=== PATIENT | male | born 1950 | race Caucasian/White ===

== ENCOUNTER → 2018-07-20 10:38 | Outpatient (CLI) | payer MEDICARE, OTHER, SELFPAY ==
[2018-07-20 11:06] LABS: International Normalized Ratio 2.5; Prothrombin Time (Protime)PT. 26.6 SECONDS (11.7-14.9)
== END ==
PROVIDERS: Family Provider Family Medicine; PCP Family Medicine; Referring Provider Family Medicine; Visit Provider Family Medicine
DX: I48.91 Unspecified atrial fibrillation (principal)
CPT/HCPCS: 85610

== ENCOUNTER 2019-07-09 15:19 | Inpatient (IN) | payer OTHER, MEDICARE, SELFPAY ==
[2019-07-09] VITALS (22 sets, daily range): BP systolic 88–157; BP diastolic 52–122; PULSE 89–132; RESP 16–29; TEMP 36.9–39; O2SAT 89–96; BMI 51.8; BMI 51.5; BMI 51.6
--- NOTE | 2019-07-09 15:39 | EKG12_ITS ---
Test Reason : Blood Pressure : / mmHG Vent. Rate : 117 BPM Atrial Rate : 105 BPM P-R Int : 000 ms QRS Dur : 096 ms QT Int : 272 ms P-R-T Axes : 000 -27 139 degrees QTc Int : 379 ms Atrial fibrillation with rapid ventricular response with premature ventricular or aberrantly conducte d complexes ST & T wave abnormality, consider lateral ischemia Abnormal ECG Confirmed by VANNESSA VERDIN, CODY ([id number]), copy editor ALLISON BURDICK ([id number]) on 07/19/2019 9:48:16 AM Referred By: PA Confirmed By:CODY HURD MD
--- NOTE | 2019-07-09 15:40 | RAD_ITS ---
STUDY: X-RAY CHEST REASON FOR EXAM: Male, 69 years old. SOB TECHNIQUE: Single AP portable view of the chest. COMPARISON: None. FINDINGS: The lungs are clear and expanded. There is no demonstrated pleural abnormality. There is mild cardiac enlargement. Normal mediastinum and tanna. Normal visualized pulmonary arteries. There is atherosclerotic tortuosity of the aortic arch and descending thoracic aorta. Normal visualized thoracic spine. Normal visualized ribs, clavicles, and shoulders. There is no demonstrated abnormality of the visualized soft tissue structures of the upper abdomen. RAD/Chest 1 View (Portable) IMPRESSION: Mild cardiomegaly. No acute chest disease. Electronically Signed: Esteban Yepez MD at 16:12 EST , Service support ,
[2019-07-09] MEDS: Acetaminophen 500 MG Tablet 1000 MG PO (15:58)
[2019-07-09] MEDS: Ondansetron 4 MG/2 ML Vial IV (15:58)
[2019-07-09 15:59] LABS: Absolute Lymphocyte Count 0.62 X10^3/uL (0.83-4.51); Basophil# 0.02 X10^3/uL; Basophil% 0.1 % (0-1); Hematocrit 45.8 % (40-54); Hemoglobin 15.3 g/dL (13.0-16.5); Lymphocyte # 0.62 X10^3/ul (4.0); Lymphocyte % 4.4 % (19-41); Mean Corp Hgb Conc 33.4 g/dL (32-36); Mean Corpuscular Hgb 31.9 pg (27.0-32.0); Mean Corpuscular Volume 95.4 fL (80-94); Mean Platelet Vol. 9.6 fl (6.2-12.0); Monocyte% 2.1 % (0-10); NRBC Flagged by Analyzer 0 % (0-5); Neutrophil # 13.03 X10^3/uL (2.7-7.7); Neutrophil % 92.6 % (47-70); POSITIVE MORPHOLOGY YES; Platelet Count 238 K/mm3 (150-450); RBC Distribution Width CV 14.6 % (11.6-14.6); RBC Distribution Width SD 50.9 fl (35.1-43.9); White Blood Count 14.1 K/mm3 (4.4-11.0)
[2019-07-09] MEDS: 0.9% Normal Saline 1,000 ML 999 ML IV ×2 (15:59→17:31)
[2019-07-09 16:00] LABS: Bacteria 0 SEEN /hpf (None Seen); Mucous, Urine 0 SEEN /hpf (<or=2+); Red Blood Cells-Urine 0 SEEN /hpf (0-5); Squamous Epithelial Cells - UA 0 SEEN /hpf (0-5)
[2019-07-09 16:03] LABS: Color, Urine Yellow (Yellow); Glucose, Dipstick Normal (Normal); Ketone-Dipstick Negative (Negative); Leukocyte Esterase-Dipstick 25 /ul (Negative); Nitrite-Dipstick Negative (Negative); Occult Blood-Urine Negative /ul (Negative); Protein-Dipstick Negative (Negative); Specific Gravity, Urine 1.015 (1.002-1.030); Urine Bilirubin Dipstick Negative (Negative); Urine Clarity Clear (Clear); Urine Urobilinogen Normal (Normal)
[2019-07-09 16:09] LABS: Differential Indicated SCAN CRITERIA MET; International Normalized Ratio 2.4; Prothrombin Time (Protime)PT. 25.7 SECONDS (11.7-14.9)
[2019-07-09 16:10] LABS: Partial Thromboplast Time 31.9 Seconds (24.1-36.2)
--- NOTE | 2019-07-09 16:19 | ED.DCSUM_ITS ---
History of Present Illness <Starla Pa - Last Filed: 07/09/19 17:13> Informant: Patient, Spouse/S.O., EMS Onset: Today Activity at onset: Exertion, Light Activity, Rest Timing: Continuous Quality: Dyspnea on exertion Current Severity: Severe Maximum Severity: Severe Worsened by: Coughing, Exertion Relieved by: Oxygen Associated Symptoms: Fever, Green sputum, Sweats. Negative for: Bloody Sputum, Chills, Clear sputum, Cough, Ear pain, Post-nasal drainage, Rhinorrhea, Sore throat, White sputum, Yellow sputum Chest Pain: None Narrative: 69-year-old male history of atrial fibrillation and DVT currently on Coumadin presents to the emergency department with fever malaise shortness of breath that have been getting worse over the last 12 hours. Cough is productive with green and yellow sputum. He is having a lot of myalgias as well. He has a mild frontal headache. No neck pain. No chest pain. He gets short of breath at rest and with exertion. Symptoms progressed at the course of today which prompted his to call EMS. He has chronic leg swelling but states it is not worse than normal. He has not had any vomiting or diarrhea. He has no abdominal pain or back pain. He denies orthopnea. He denies paroxysmal nocturnal dyspnea. He denies sick contacts. He denies any recent use of antibiotics. He denies any recent hospital admissions. PE Risk Factors: Prior DVT or PE. Negative for: Cancer, OCP + Smoking + > 35, Recent immobilization, Recent surgery, Recent travel Prior similar symptoms: No Recent Illness/Hospitalization: No <Dre Esparza - Last Filed: 07/09/19 17:23> Chief Complaint: Fever Past Medical History <Starla Pa - Last Filed: 07/09/19 17:13> Prior records reviewed: Yes Past Medical History: - - Atrial fibrillation, hypertension, gout, DVT Surgical History: no surgical history Lives: With Family Smoking Status: Current some day smoker Alcohol: Occasional Drugs: None <Dre Esparza - Last Filed: 07/09/19 17:23> - Allergies and Home Meds Allergies/Adverse Reactions: Allergies Penicillins Allergy (Verified 07/09/19 15:21) Nausea/Vom/Diarrhea adhesive Adverse Reaction (Verified 07/09/19 15:22) Rash Primary Care Physician: Jeff Gore III, MD [Primary Care Provider] - Review of Systems All systems negative except as indicated General: Reports: Chills, Fever, Malaise Eyes: Denies: Visual changes - bilaterally, Blurred Vision - bilaterally, Diplopia ENT: Denies: Rhinorrhea, Sore throat Cardiovascular: Denies: Chest pain, Palpitations, Heart racing Respiratory: Reports: Dyspnea, Cough, Sputum, Dyspnea on exertion. Denies: Orthopnea, Paroxysmal nocturnal dyspnea Gastrointestinal: Denies: Abdominal pain, Nausea, Vomiting, Diarrhea Genitourinary: Denies: Dysuria, Hematuria, Frequency Musculoskeletal: Reports: Myalgias, Swelling. Denies: Arthralgias, Neck pain, Back pain, Extremity Pain Skin: Denies: Rash, Abscess, Abrasions, Wounds Neurological: Denies: Headache, Weakness, Parasthesia Hematologic: Reports: Easy bruising. Denies: Easy bleeding <Dre Esparza - Last Filed: 07/09/19 17:23> Physical Exam Vital Signs/Narrative: Vital Signs Temp Pulse Resp BP Pulse Ox 07/09/19 16:03 102.2 F H 117 H 27 H 140/80 H 92 07/09/19 15:22 102.1 F H 131 H 25 H 157/122 H 89 <Starla Pa - Last Filed: 07/09/19 17:13> Vital Signs/Narrative: Vital Signs Temp Pulse Resp BP Pulse Ox 07/09/19 16:03 102.2 F H 117 H 27 H 140/80 H 92 07/09/19 15:22 102.1 F H 131 H 25 H 157/122 H 89 Inital Vital Signs reviewed: Yes General: Well nourished, Well developed, No Acute Distress Head: Normocephalic, Atraumatic Eyes: Perrl, EOMI ENT: Moist mucous membranes Neck: Supple, Nontender, No lymphadenopathy, No JVD Cardiovascular: Irregular, Tachycardia Respiratory: No distress, Chest nontender, Diminished Abdomen: Soft, Nontender, Nondistended, Normal bowel sounds, No masses Back: Nontender, Normal Inspection Extremities: Nontender, Edema. Negative for: Tenderness, Calf Tenderness Skin: Normal color, No rash, No Trauma Neurological: Alert, Oriented x3 Psychological: Normal affect, Normal Mood <Dre Esparza - Last Filed: 07/09/19 17:23> Diagnostic/Tx/Re-eval Impressions Chest X-Ray 07/09/19 15:40 IMPRESSION: Mild cardiomegaly. No acute chest disease. Electronically Signed: Esteban Yepez MD at 16:12 EST , Service support , 07/09/19 15:40 Chest 1 View (Portable) [RAD] Stat 07/09/19 16:00 Mucosa - Nose Influenza Types A,B Direct FA (ANDERS) - Final Laboratory Results 07/09/19 07/09/19 07/09/19 15:35 15:35 15:35 WBC 14.1 H RBC 4.80 Hgb 15.3 Hct 45.8 MCV 95.4 H MCH 31.9 MCHC 33.4 RDW Std Deviation 50.9 H RDW Coeff of [place] 14.6 Plt Count 238 MPV 9.6 Immature Gran % (Auto) 0.800 Neut % (Auto) 92.6 H Lymph % (Auto) 4.4 L [place] % (Auto) 2.1 Eos % (Auto) 0.0 Baso % (Auto) 0.1 Absolute Neuts (auto) 13.0 H Absolute Lymphs (auto) 0.62 L Nucleated RBC % 0 Platelet Estimate ADEQUATE RBC Morphology N CHROM Anisocytosis RARE Macrocytosis RARE PT 25.7 H INR 2.4 APTT 31.9 Sodium 136 Potassium 3.9 Chloride 101 Carbon Dioxide 28.0 Anion Gap 7 BUN 23 H Creatinine 1.19 Estim Creat Clear Calc 61.34 Est GFR (MDRD) Af Amer 78 Est GFR (MDRD) Non-Af 65 BUN/Creatinine Ratio 19.3 Glucose 142 H Lactic Acid Calcium 9.2 Total Bilirubin 0.70 AST 33 ALT 32 Alkaline Phosphatase 69 Total Protein 7.8 Albumin 3.5 Globulin 4.3 H Albumin/Globulin Ratio 0.8 L Urine Color Urine Clarity Urine pH Ur Specific [place] Urine Protein Urine Glucose (UA) Urine Ketones Urine Occult Blood Urine Nitrite Urine Bilirubin Urine Urobilinogen Ur Leukocyte Esterase Urine RBC Urine WBC Ur Squamous Epith Cells Urine Bacteria Urine Mucus 07/09/19 07/09/19 15:35 15:49 WBC RBC Hgb Hct MCV MCH MCHC RDW Std Deviation RDW Coeff of [place] Plt Count MPV Immature Gran % (Auto) Neut % (Auto) Lymph % (Auto) [place] % (Auto) Eos % (Auto) Baso % (Auto) Absolute Neuts (auto) Absolute Lymphs (auto) Nucleated RBC % Platelet Estimate RBC Morphology Anisocytosis Macrocytosis PT INR APTT Sodium Potassium Chloride Carbon Dioxide Anion Gap BUN Creatinine Estim Creat Clear Calc Est GFR (MDRD) Af Amer Est GFR (MDRD) Non-Af BUN/Creatinine Ratio Glucose Lactic Acid 3.2 H* Calcium Total Bilirubin AST ALT Alkaline Phosphatase Total Protein Albumin Globulin Albumin/Globulin Ratio Urine Color Yellow Urine Clarity Clear Urine pH 5.0 Ur Specific [place] 1.015 Urine Protein Negative Urine Glucose (UA) Normal Urine Ketones Negative Urine Occult Blood Negative Urine Nitrite Negative Urine Bilirubin Negative Urine Urobilinogen Normal Ur Leukocyte Esterase 25 H Urine RBC 0 SEEN Urine WBC 0-5 SEEN Ur Squamous Epith Cells 0 SEEN Urine Bacteria 0 SEEN Urine Mucus 0 SEEN Treatment - Dyspnea: Oxygen - Medical Decision Making Patient was seen with PA. I interviewed and examined him independently. Patient presents with body aches, fever, cough. Symptoms started today. Patient sitting upright in bed in no acute distress. Heart is tachycardic and irregular. Lung sounds are grossly clear. Abdomen is soft and nontender. Extremity examination reveals 2 skin avulsions to the lateral distal left leg. No sign of surrounding cellulitis. Cultures were obtained. At this time we have no source of infection for the patient's severe sepsis. Patient will be given vancomycin and cefepime per sepsis order set. Patient be admitted to ICU. <Starla Pa - Last Filed: 07/09/19 17:13> Chest X-Ray - ED: 1 View, Read by ED Physician, Read by Radiologist, No Acute Disease, Cardiomegaly - Rhythm Strip Rhythm Strip: A-fib Rate: 122 Ectopy: PVC(s) - EKG Initial EKG Interpretation: No Acute Injury Pattern, Atrial Fibrillation Prior: Unchanged Treatment - Dyspnea: Oxygen Repeat Evaluation: No change - Medical Decision Making On arrival the patient was febrile and tachycardic. He was in atrial fibrillation, which is chronic for him and he is anticoagulated for this. He was requiring oxygen. He was given the appropriate IV fluid bolus as sepsis work-up was pursued. He was given Zofran and Tylenol. Laboratory work-up was remarkable for white blood cell count of 14. His INR was 2.4. His lactate was 3.2. The rest of his laboratory work-up was unremarkable. His urinalysis was negative. His chest x-ray showed no acute findings mild cardiomegaly. At this time there is no source for the patient's infection. He did have 2 abrasions over his left leg but there does not appear to be acute infection. His influenza testing is negative. However due to his sepsis and requirement of oxygen he will require admission for further evaluation. Impressions Chest X-Ray 07/09/19 15:40 IMPRESSION: Mild cardiomegaly. No acute chest disease. Electronically Signed: Esteban Yepez MD at 16:12 EST , Service support , 07/09/19 15:40 Chest 1 View (Portable) [RAD] Stat 07/09/19 16:00 Mucosa - Nose Influenza Types A,B Direct FA (ANDERS) - Final Laboratory Results 07/09/19 07/09/19 07/09/19 15:35 15:35 15:35 WBC 14.1 H RBC 4.80 Hgb 15.3 Hct 45.8 MCV 95.4 H MCH 31.9 MCHC 33.4 RDW Std Deviation 50.9 H RDW Coeff of [place] 14.6 Plt Count 238 MPV 9.6 Immature Gran % (Auto) 0.800 Neut % (Auto) 92.6 H Lymph % (Auto) 4.4 L [place] % (Auto) 2.1 Eos % (Auto) 0.0 Baso % (Auto) 0.1 Absolute Neuts (auto) 13.0 H Absolute Lymphs (auto) 0.62 L Nucleated RBC % 0 Platelet Estimate ADEQUATE RBC Morphology N CHROM Anisocytosis RARE Macrocytosis RARE PT 25.7 H INR 2.4 APTT 31.9 Sodium 136 Potassium 3.9 Chloride 101 Carbon Dioxide 28.0 Anion Gap 7 BUN 23 H Creatinine 1.19 Estim Creat Clear Calc 61.34 Est GFR (MDRD) Af Amer 78 Est GFR (MDRD) Non-Af 65 BUN/Creatinine Ratio 19.3 Glucose 142 H Lactic Acid Calcium 9.2 Total Bilirubin 0.70 AST 33 ALT 32 Alkaline Phosphatase 69 Total Protein 7.8 Albumin 3.5 Globulin 4.3 H Albumin/Globulin Ratio 0.8 L Urine Color Urine Clarity Urine pH Ur Specific [place] Urine Protein Urine Glucose (UA) Urine Ketones Urine Occult Blood Urine Nitrite Urine Bilirubin Urine Urobilinogen Ur Leukocyte Esterase Urine RBC Urine WBC Ur Squamous Epith Cells Urine Bacteria Urine Mucus 07/09/19 07/09/19 15:35 15:49 WBC RBC Hgb Hct MCV MCH MCHC RDW Std Deviation RDW Coeff of [place] Plt Count MPV Immature Gran % (Auto) Neut % (Auto) Lymph % (Auto) [place] % (Auto) Eos % (Auto) Baso % (Auto) Absolute Neuts (auto) Absolute Lymphs (auto) Nucleated RBC % Platelet Estimate RBC Morphology Anisocytosis Macrocytosis PT INR APTT Sodium Potassium Chloride Carbon Dioxide Anion Gap BUN Creatinine Estim Creat Clear Calc Est GFR (MDRD) Af Amer Est GFR (MDRD) Non-Af BUN/Creatinine Ratio Glucose Lactic Acid 3.2 H* Calcium Total Bilirubin AST ALT Alkaline Phosphatase Total Protein Albumin Globulin Albumin/Globulin Ratio Urine Color Yellow Urine Clarity Clear Urine pH 5.0 Ur Specific [place] 1.015 Urine Protein Negative Urine Glucose (UA) Normal Urine Ketones Negative Urine Occult Blood Negative Urine Nitrite Negative Urine Bilirubin Negative Urine Urobilinogen Normal Ur Leukocyte Esterase 25 H Urine RBC 0 SEEN Urine WBC 0-5 SEEN Ur Squamous Epith Cells 0 SEEN Urine Bacteria 0 SEEN Urine Mucus 0 SEEN <Dre Esparza - Last Filed: 07/09/19 17:23> Disposition: Admit to ICU <Starla Pa - Last Filed: 07/09/19 17:13> ED Disposition <Starla Pa - Last Filed: 07/09/19 17:13> <Dre Esparza - Last Filed: 07/09/19 17:23> - Plan for ED Patient: Disposition: Acute Care Hospital [facility] Diagnosis: Severe sepsis Referrals: Jeff Gore III, MD [Primary Care Provider] -
[2019-07-09 16:28] LABS: ALB/GLOB Ratio 0.8 RATIO (0.9-2.4); AST(SGOT) 33 U/L (15-37); Alanine Aminotransfer ALT/SGPT 32 U/L (16-61); Albumin, Serum 3.5 g/dL (3.2-5.0); Alkaline Phosphatase 69 U/L (45-117); Anion Gap 7 (5-15); BUN 23 mg/dL (7-18); BUN/Creat Ratio 19.3 RATIO (10-20); Calcium,Total 9.2 mg/dL (8.5-10.1); Chloride 101 mmol/L (98-107); Creatinine, Serum 1.19 mg/dL (0.70-1.30); EST Glomerular Filtration Rate 65 mL/min (>60); Est Glom Filt Rate - Afr Amer 78 mL/min (>60); Estimated Creatinine Clearance 61.34 ml/min; Globulin 4.3 g/dL (2.2-4.2); Glucose 142 mg/dL (74-106); Potassium 3.9 mmol/L (3.5-5.1); Protein, Total 7.8 g/dL (6.4-8.2); Sodium Level 136 mmol/L (136-145)
[2019-07-09 16:29] LABS: Lactic Acid 3.2 mmol/L (0.4-1.9)
[2019-07-09 16:32] LABS: White Blood Cells 0-5 SEEN /hpf (0-5)
[2019-07-09 16:41] LABS: Anisocytosis RARE; Macrocytosis RARE; Platelet Estimate ADEQUATE (ADEQ); Red Cell Morphology N CHROM NORMAL (NORM C&C)
--- NOTE | 2019-07-09 17:19 | NURSING ---
ICU SEVERE SEPSIS SEMENTI
--- NOTE | 2019-07-09 17:22 | NURSING ---
ICU 2
--- NOTE | 2019-07-09 18:41 | HP.PCM_ITS ---
Problem List (1) Cellulitis Status: Acute Qualifiers: Site of cellulitis: extremity Site of cellulitis of extremity: lower extremity Laterality: left Qualified Code(s): L03.116 - Cellulitis of left lower limb (2) Venous stasis ulcers Status: Acute Qualifiers: Venous stasis ulcer site: calf Varicose vein presence: with varicose veins Laterality: left Non-pressure ulcer stage: with fat layer exposed Qualified Code(s): I83.022 - Varicose veins of left lower extremity with ulcer of calf; L97.222 - Non-pressure chronic ulcer of left calf with fat layer exposed (3) Super obesity Status: Chronic (4) Obstructive sleep apnea Status: Chronic Comment: he does not wear PAP (5) Hyperuricemia Status: Chronic (6) Gout Status: Chronic (7) Hypertension Status: Chronic (8) Hyperglycemia Status: Acute (9) Venous insufficiency Status: Chronic (10) Hypoxia Status: Acute (11) Atrial fibrillation Status: Chronic Qualifiers: Atrial fibrillation type: longstanding persistent Qualified Code(s): I48.11 - Longstanding persistent atrial fibrillation (12) Lactic acidosis Status: Acute (13) History of DVT (deep vein thrombosis) Status: Chronic (14) Chronic anticoagulation Status: Chronic Comment: On warfarin History of Present Illness Date of Admission: 07/09/19 Chief Complaint: Fever, pain in his left leg, headache and cough The patient is a 69 year old M with a past medical history of hypertension, hyperuricemia, gout, chronic venous insufficiency, history of venous stasis ulcers, chronic atrial fibrillation, TRACI (not compliant with PAP therapy), super obesity and remote history of DVT who presented to the emergency room at [facility] on 07/09/2019 complaining of fever, headache, mild cough and generally not feeling well starting just this morning. When he went to bed last night he felt fine. He denies any sick contacts. He has not recently been to [place]. He has no contacts that have been to [place]. He denies any recent contact with anybody having coronavirus. He did not get a flu shot this year. He is also complaining of nausea but it was completely relieved with 1 shot of Zofran. He denies diarrhea, abdominal pain, dysuria, flank pain, chest pain. He has shortness of breath with exertion. He denies any history of cardiovascular disease other than atrial fibrillation. Vital signs at presentation to the emergency department were temperature 102.1, pulse rate 131, blood pressure 157/122, respiratory rate 25 and he was 89% saturated on room air. He was 87% saturated on a 2 L nasal cannula at the time I examined him and I increased it to 3 L. Labs shows a white blood cell count of 14.1 with 92% neutrophils. Hemoglobin and platelets are within normal limits. INR is therapeutic at 2.4. The BMP shows a BUN of 23 and a creatinine of 1.19 and we have no baseline on this gentleman. Lactic acid was elevated at 3.2 LFTs were unremarkable. UA showed no signs of urinary tract infection. Chest x-ray s howed a poor inspiratory effort with crowded lung markings but there was no evidence of infiltrates, pleural effusions or pulmonary vascular congestion otherwise. He has 2 small venous stasis ulcers on the lateral aspect of the distal left lower extremity. There is purplish venous congestion in the area along with erythema and increased warmth to touch. He has pain with palpation and this is unusual for him. He is being admitted to the intensive care unit with a diagnosis of severe sepsis which more likely than not is secondary to cellulitis due to infected venous stasis ulcers of the left lower extremity. Past Medical History Past Medical History (Chronic Problems): Chronic Problems Super obesity (Chronic) Obstructive sleep apnea (Chronic) he does not wear PAP Hyperuricemia (Chronic) Gout (Chronic) Hypertension (Chronic) Venous insufficiency (Chronic) Atrial fibrillation (Chronic) History of DVT (deep vein thrombosis) (Chronic) Chronic anticoagulation (Chronic) On warfarin Allergies Penicillins Allergy (Verified 07/09/19 15:21) Nausea/Vom/Diarrhea adhesive Adverse Reaction (Verified 07/09/19 15:22) Rash Home Medications: Ambulatory Orders Medication Instructions Recorded Allopurinol 300 mg PO DAILY 07/09/19 Lisinopril 40 mg PO BID 07/09/19 Metoprolol Tartrate 25 mg PO BID 07/09/19 Potassium Chloride 20 meq PO DAILY 07/09/19 Warfarin [Coumadin ([facility])] 5 mg PO DAILY 07/09/19 hydroCHLOROthiazide 12.5 mg PO DAILY 07/09/19 [Hydrochlorothiazide] Surgical History: noncontributory Psychiatric History: No pertinent psych hx Lives: Spouse/ Significant Other, With Family Smoking Status: Current some day smoker Tobacco Use: Cigars, - - he did smoke cigarettes for about a year many years ago Alcohol: Occasional - 1-2 scotch a few days a week Drugs: None - *Family History Maternal History Items: No pertinent history Paternal History Items: No pertinent history Review of Systems Constitutional: Reports: Chills, Fever, Malaise. Denies: Weight Change Eyes: Denies: Blurred vision, Vision Change HEENT: Reports: Nasal Congestion - chronic. Denies: Difficulty Swallowing, Ear Pain, Head Aches, Sinus Congestion, Sinus Drainage, Sore Throat Cardiovascular: Reports: Edema - Chronic. Denies: Chest Pain, Light Headedness, Palpitations, Syncope Respiratory: Reports: Cough, Shortness of breath upon exertion - Shortness of breath is not new. Denies: Shortness of breath at rest, Sputum production, Wheezing Gastrointestinal: Reports: Nausea. Denies: Abdominal Pain, Constipation, Diarrhea, Vomiting Genitourinary: Denies: Dysuria Musculoskeletal: Denies: Joint Pain, Joint Tenderness Skin: Reports: Wounds - He has 2 small venous stasis ulcers on the left lower extremity from bumping his leg recently. Denies: Rash Neurological: Denies: Balance problems, Change in Speech, Slurred speech, Confusion, Focal weakness, Numbness, Tingling, Tremor, Seizures Psychiatric: Denies: Anxiety, Depression, Homicidal Ideations, Suicidal Ideations Endocrine: Denies: Change in Body Habitus Hematologic/ Lymphatic: Reports: Easy Bruising, Easy Bleeding, Hx of blood clot VTE Information - Inpt Only VTE Present on Admission: No Reason prophylaxis not ordered:: Treatment Not Indicated - He is therapeutic on warfarin Patient Problems: Active and Suspected Problems Severe sepsis (Acute) Cellulitis (Acute) Venous stasis ulcers (Acute) Hyperglycemia (Acute) Hypoxia (Acute) Lactic acidosis (Acute) - Physical Exam Vitals/I&O's: Vital Signs Temp Pulse Resp BP Pulse Ox 99.9 F H 92 23 H 111/72 93 07/09/19 18:13 07/09/19 18:13 07/09/19 18:13 07/09/19 18:13 07/09/19 18:13 Oxygen Flow Rate (L/min) 2 Oxygen Delivery Method Nasal Cannula Weight: 361 lb 5.402 oz Body Mass Index (BMI) 51.8 Intake and Output for Last 24 Hours 07/07/19 07/08/19 07/09/19 23:59 23:59 23:59 Intake Total 1100 / 1100 Balance 1100 / 1100 General: Alert, Oriented x3, Cooperative, Well developed, Well nourished HEENT: Atraumatic, PERRLA, EOMI, Normocephalic Oral: No Gingival or Mucosal Lesions/ Ulcerations, Dry Mucosa - mild Neck: Supple, No Nuchal Rigidity, Trachea Midline Lungs: Clear to auscultation, No rhonchi, No wheeze, No rales, Diminished - in the bases more likely than not due to his body habitus Cardiovascular: Normal S1, Normal S2, No murmurs, Irregular Rate, No Gallop, Tachycardic Abdomen: Bowel Sounds Present, Soft, Non Tender, Non-Distended, Obese Extremities: No cyanosis, Edema, - - stasis hyperpigmentation of the distal legs Skin: Ulcer/ Wound - he has 2 small venous stasis ulcers of the distal lateral left leg with erythema and increased warmth to touch....there is also purplish discoloration around the wounds due to venous stasis Musculoskeletal: No Muscle Wasting, Arthritic Changes Neurological: Cranial nerves II-XII grossly intact, Neuro grossly intact Psych/Mental Status: Normal Affect, Appropriate Microbiology Past 72 Hours 07/09/19 16:00 Mucosa - Nose Influenza Types A,B Direct FA (ANDERS) - Final Laboratory Results 07/09/19 15:35: WBC 14.1 H, RBC 4.80, Hgb 15.3, Hct 45.8, MCV 95.4 H, MCH 31.9, MCHC 33.4, RDW Std Deviation 50.9 H, RDW Coeff of Kalyan 14.6, Plt Count 238, MPV 9.6, Immature Gran % (Auto) 0.800, Neut % (Auto) 92.6 H, Lymph % (Auto) 4.4 L, [place]ette % (Auto) 2.1, Eos % (Auto) 0.0, Baso % (Auto) 0.1, Absolute Neuts (auto) 13.0 H, Absolute Lymphs (auto) 0.62 L, Nucleated RBC % 0, Platelet Estimate ADEQUATE, RBC Morphology N CHROM, Anisocytosis RARE, Macrocytosis RARE 07/09/19 15:35: PT 25.7 H, INR 2.4, APTT 31.9 07/09/19 15:35: Sodium 136, Potassium 3.9, Chloride 101, Carbon Dioxide 28.0, Anion Gap 7, BUN 23 H, Creatinine 1.19, Estim Creat Clear Calc 61.34, Est GFR (MDRD) Af Amer 78, Est GFR (MDRD) Non-Af 65, BUN/Creatinine Ratio 19.3, Glucose 142 H, Calcium 9.2, Total Bilirubin 0.70, AST 33, ALT 32, Alkaline Phosphatase 69, Total Protein 7.8, Albumin 3.5, Globulin 4.3 H, Albumin/Globulin Ratio 0.8 L 07/09/19 15:35: Lactic Acid 3.2 H* 07/09/19 15:49: Urine Color Yellow, Urine Clarity Clear, Urine pH 5.0, Ur Specific [place] 1.015, Urine Protein Negative, Urine Glucose (UA) Normal, Urine Ketones Negative, Urine Occult Blood Negative, Urine Nitrite Negative, Urine Bilirubin Negative, Urine Urobilinogen Normal, Ur Leukocyte Esterase 25 H, Urine RBC 0 SEEN, Urine WBC 0-5 SEEN, Ur Squamous Epith Cells 0 SEEN, Urine Bacteria 0 SEEN, Urine Mucus 0 SEEN Current Medications Acetaminophen (Tylenol) 650 mg PO Q6H TED Al Hydroxide/Mg Hydroxide (Mylanta Ii) 30 ml PO Q6H PRN PRN PRN Reason: Gastric Burning Albuterol Sulfate (Ventolin Aerosols) 2.5 mg INHALATION Q2H PRN PRN PRN Reason: SOB/Wheezing Allopurinol (Zyloprim) 300 mg PO DAILY TED Famotidine (Pepcid) 20 mg PO BID TED Guaifenesin (Robitussin) 10 ml PO Q4H PRN PRN PRN Reason: COUGH Vancomycin IV Pharmacy to Dose (1 ea/ Sodium Chloride) 500 mls @ 250 mls/hr IV X1 PRN; Protocol PRN Reason: Rx to Dose Vancomycin HCl 2,000 mg/ (Sodium Chloride) 540 mls @ 250 mls/hr IV X1 ONE Stop: 07/09/19 19:39 Last Admin: 07/09/19 18:12 Dose: 250 mls/hr Documented by: Sodium Chloride () 1,000 mls @ 75 mls/hr IV .[id number] TED Cefepime HCl 2 gm/ Sodium (Chloride) 100 mls @ 200 mls/hr IV Q8 TED Lisinopril (Zestril) 40 mg PO DAILY [facility] Magnesium Hydroxide (Milk Of Magnesia) 30 ml PO DAILY PRN PRN PRN Reason: Constipation Metoprolol Tartrate (Lopressor (Beta Muriel)) 25 mg PO BID [facility] Ondansetron HCl (Zofran) 4 mg IV Q8H PRN PRN PRN Reason: NAUSEA/VOMITING Oxycodone HCl (Oxyir) 5 mg PO Q4H PRN PRN PRN Reason: Pain Score 4-5/10 Potassium Chloride (K-Dur) 20 meq PO DAILY [facility] Prochlorperazine Edisylate (Compazine Iv) 5 mg IV Q4H PRN PRN PRN Reason: Breakthrough Nausea/Vomiting Senna/Docusate Sodium (Senokot-S, Sravani-Colace) 2 tablet PO BID PRN PRN Reason: Constipation Throat Lozenges (Cepacol Sore Throat Lozenge) 1 lozenge MUCOUS MEM Q2H PRN PRN PRN Reason: SORE THROAT Warfarin Sodium (Coumadin (Pbkc)) 5 mg PO DAILY [facility] Assessment/Plan All Active Problems Severe sepsis (Acute) Cellulitis (Acute) Venous stasis ulcers (Acute) Hyperglycemia (Acute) Hypoxia (Acute) Lactic acidosis (Acute) Impressions 1. Severe sepsis more likely than not secondary to infected venous stasis ul cers of the left lower extremity. Cefepime and vancomycin have been ordered. Will obtain a Gram stain and CUSTOMER SUPPORT ASSISTANT of the wound. Dressing orders have been written. Blood cultures were drawn in the emergency department. Initial lactic acid was 3.2 and he has hypoxia so he is being admitted to the ICU. 2. Chronic venous insufficiency with venous stasis ulcers of the Left LE. Compressions and elevation ordered. Will have the wound care nurse evaluate in the AM 3. hypoxia - suspect this may be his baseline? He has long standing TRACI and has never been compliant with PAP therapy. He is also morbidly obese and there may be an element of restrictive lung disease. Overnight trending pulse ox has been ordered. 4. Morbid obesity - weight reduction has been advised. 5. Hyperglycemia - no hx of DM II - will check a HGBA1C 6. Chronic atrial fibrillation/chronic anticoagulation with warfarin/hyperuricemia/gout/intermittent cigar smoker/hypertension: complicate care, prognosis, management - continue the home meds. I advised him to reconsider having a update sleep study since there are many new masks these days.......if he will not agree to PAP therapy he may be a candidate for home O2. Recheck lab in the a.m. Continue cefepime and vancomycin Repeat lactic acid has been ordered Check a hemoglobin A1c IV fluids ordered. Consult materials engineering technician Scheduled Tylenol every 6 hours to prevent shaking chills and to control the temp and help with HR Pt wishes to be a Full code - discussed with Ed and his
[2019-07-09 19:51] LABS: Reflex Lactate? Y
[2019-07-09 20:17] LABS: Magnesium 1.4 mg/dL (1.6-2.6); Uric Acid 5.6 mg/dL (3.5-7.2)
[2019-07-09 20:18] LABS: M R Staph aureus DNA By PCR Negative (Negative); Probe Check PASS; Specimen Processing Control PASS; Staph aureus DNA By PCR NEGATIVE (Negative)
[2019-07-09 20:35] LABS: Lactic Acid 2.8 mmol/L (0.4-1.9)
[2019-07-09] MEDS: 0.9% Normal Saline 1,000 ML 75 ML IV (20:49)
[2019-07-09] MEDS: 0.9% Normal Saline 1,000 ML 500 ML IV (20:53)
[2019-07-09] MEDS: Magnesium Sulfate 4gm/100mL 4 GM/100 ML IV.SOLN. IV (21:42)
[2019-07-09] MEDS: Famotidine 20 MG Tablet PO (21:46)
[2019-07-09 22:13] LABS: Hemoglobin A1c 6.6 % (4.2-6.3)
[2019-07-09] MEDS: Acetaminophen 325 MG Tablet 650 MG PO (23:50)
[2019-07-09] MEDS: 0.9% Saline Lock 10 ML Syringe IV (23:51)
[2019-07-10] VITALS (28 sets, daily range): BP systolic 86–140; BP diastolic 50–86; PULSE 75–110; RESP 15–28; TEMP 36.6–37.3; O2SAT 70–99
[2019-07-10 00:39] LABS: Lactic Acid 2.1 mmol/L (0.4-1.9)
[2019-07-10 04:07] LABS: Reflex Lactate? Y
[2019-07-10 05:13] LABS: Absolute Lymphocyte Count 0.71 X10^3/uL (0.83-4.51); Absolute Neutrophil Count 20.4 X10^3/uL (2.0-7.7); Basophil# 0.05 X10^3/uL; Basophil% 0.2 % (0-1); Eosinophil# 0.11 X10^3/uL; Eosinophils% 0.5 % (0-5); Hematocrit 40.2 % (40-54); Hemoglobin 13.6 g/dL (13.0-16.5); Lymphocyte # 0.71 X10^3/ul (4.0); Lymphocyte % 3.1 % (19-41); Mean Corp Hgb Conc 33.8 g/dL (32-36); Mean Corpuscular Hgb 32.5 pg (27.0-32.0); Mean Corpuscular Volume 96.2 fL (80-94); Mean Platelet Vol. 9.5 fl (6.2-12.0); Monocyte# 0.91 X10^3/uL; NRBC Flagged by Analyzer 0 % (0-5); Neutrophil % 89.5 % (47-70); POSITIVE DIFFERENTIAL YES; POSITIVE MORPHOLOGY YES; Platelet Count 201 K/mm3 (150-450); RBC Distribution Width CV 15.1 % (11.6-14.6); RBC Distribution Width SD 53.2 fl (35.1-43.9); Red Blood Count 4.18 M/mm3 (4.6-6.2); White Blood Count 22.8 K/mm3 (4.4-11.0)
[2019-07-10 05:23] LABS: International Normalized Ratio 2.2; Prothrombin Time (Protime)PT. 24.4 SECONDS (11.7-14.9)
[2019-07-10] MEDS: Acetaminophen 325 MG Tablet 650 MG PO ×3 (05:34→17:09)
[2019-07-10] MEDS: 0.9% Normal Saline 1,000 ML 150 ML IV (05:35)
[2019-07-10 05:47] LABS: Anion Gap 5 (5-15); BUN 18 mg/dL (7-18); BUN/Creat Ratio 20.1 RATIO (10-20); Chloride 102 mmol/L (98-107); Cholesterol 111 mg/dL (200); Creatinine, Serum 0.89 mg/dL (0.70-1.30); EST Glomerular Filtration Rate 90 mL/min (>60); Est Glom Filt Rate - Afr Amer 109 mL/min (>60); Estimated Creatinine Clearance 82.02 ml/min; Glucose 112 mg/dL (74-106); High Density Lipoprotein 54 mg/dL; Magnesium 2.4 mg/dL (1.6-2.6); Phosphorus 3.1 mg/dL (2.5-4.9); Potassium 4.1 mmol/L (3.5-5.1); Sodium Level 136 mmol/L (136-145); Triglycerides 83 mg/dL; Very Low Density Lipoprotein 17 mg/dL (5-40)
[2019-07-10 07:00] LABS: Differential Indicated SCAN CRITERIA MET
[2019-07-10] MEDS: Magnesium Oxide 400 MG Tablet PO (08:03)
[2019-07-10] MEDS: Metoprolol Tartrate 25 MG Tablet PO ×2 (08:04→21:24)
[2019-07-10] MEDS: Allopurinol 300 MG Tablet PO (08:04)
[2019-07-10] MEDS: Famotidine 20 MG Tablet PO ×2 (08:04→21:24)
[2019-07-10] MEDS: Glucerna Shake 120 ML LIQUID PO (08:08)
--- NOTE | 2019-07-10 09:25 | NURSING ---
wound photo: left lower leg
--- NOTE | 2019-07-10 09:48 | PCM.CON.CC ---
Problem List (1) Severe sepsis Status: Acute (2) Venous stasis ulcers Status: Acute Qualifiers: Venous stasis ulcer site: calf Varicose vein presence: with varicose veins Laterality: left Non-pressure ulcer stage: with fat layer exposed Qualified Code(s): I83.022 - Varicose veins of left lower extremity with ulcer of calf; L97.222 - Non-pressure chronic ulcer of left calf with fat layer exposed (3) Super obesity Status: Chronic (4) Obstructive sleep apnea Status: Chronic Comment: he does not wear PAP (5) Hyperuricemia Status: Chronic (6) Gout Status: Chronic (7) Hypertension Status: Chronic (8) Hypoxia Status: Acute (9) Atrial fibrillation Status: Chronic Qualifiers: Atrial fibrillation type: longstanding persistent Qualified Code(s): I48.11 - Longstanding persistent atrial fibrillation (10) History of DVT (deep vein thrombosis) Status: Chronic (11) Chronic anticoagulation Status: Chronic Comment: On warfarin Reason for Consult Date of Consultation: 07/10/19 Reason for Consultation: Severe sepsis History of Present Illness: The patient is a 69 year old M, with past medical history listed below, who presented [facility] on 07/09/2019 secondary to fever, malaise and shortness of breath over the last 24 hours. Patient reportedly had a cough productive of green to yellow sputum over the last 24 hours. Patient also developed a mild frontal headache, but denied any neck or chest pain. Patient states that he had noted some increased shortness of breath and asked his to call EMS. Patient does have chronic lower extremity swelling that does not subjectively appear to be any worse compared to previous. Patient not reported any recent GI issues such as vomiting, diarrhea or nausea. Patient did not reported any abdominal or back pain. Patient denies any recent antibiotics or hospital admissions. Patient has had an issue with a lower extremity ulcer in the past, but this has since healed. In the ER, patient was noted to be febrile, tachycardic and leukocytosis. Patient's lactate was also elevated at 3.2. Patient is in chronic A. fib, but did have some tachycardia and was requiring supplemental oxygen to maintain saturations. Chest x-ray was unremarkable. Patient does have some abrasions over his left leg and was admitted to the intensive care unit with empiric healthcare associated antibiotics. Overnight, patient did have significant desaturations into the 40s and 50s that was attributed to sleep apnea. This was not responsive to 3 L nasal cannula. Patient reports that he feels subjectively improved compared to previous. Patient's pain is gone and he feels his shortness of breath is back to its normal. Patient does report some lower extremity edema at baseline, but is unclear if this is significantly different compared to previous. Patient has had atrial fibrillation in the past that is typically followed by his primary care physician. Patient has seen Dr. Galloway during previous hospitalizations per his report. Patient does have a history of obstructive sleep apnea in 2007 and had a CPAP prescribed. Patient states he used it for 1 or 2 days and then gave it up. Review of systems otherwise negative from a constitutional, HEENT, respiratory, cardiovascular, GI, genitourinary, musculoskeletal, skin, neurologic, psychiatric and hematologic system unless stated above. Past Medical History Past Medical History (Chronic Problems): Chronic Problems Super obesity (Chronic) Obstructive sleep apnea (Chronic) he does not wear PAP Hyperuricemia (Chronic) Gout (Chronic) Hypertension (Chronic) Venous insufficiency (Chronic) Atrial fibrillation (Chronic) History of DVT (deep vein thrombosis) (Chronic) Chronic anticoagulation (Chronic) On warfarin Allergies Penicillins Allergy (Verified 07/09/19 15:21) Nausea/Vom/Diarrhea adhesive Adverse Reaction (Verified 07/09/19 15:22) Rash Home Medications: Ambulatory Orders Medication Instructions Recorded Allopurinol 300 mg PO DAILY 07/09/19 Lisinopril 40 mg PO DAILY 07/09/19 Metoprolol Tartrate 25 mg PO BID 07/09/19 Potassium Chloride 20 meq PO DAILY 07/09/19 Warfarin [Coumadin ([facility])] 5 mg PO DAILY 07/09/19 hydroCHLOROthiazide 12.5 mg PO DAILY 07/09/19 [Hydrochlorothiazide] Surgical History: noncontributory Psychiatric History: No pertinent psych hx Lives: Spouse/ Significant Other, With Family Smoking Status: Current some day smoker Tobacco Use: Cigars, - - he did smoke cigarettes for about a year many years ago Alcohol: Occasional - 1-2 scotch a few days a week Drugs: None - *Family History Maternal History Items: No pertinent history Paternal History Items: No pertinent history Review of Systems Comment: See HPI Patient Problems: Active and Suspected Problems Severe sepsis (Acute) Cellulitis (Acute) Venous stasis ulcers (Acute) Hyperglycemia (Acute) Hypoxia (Acute) Lactic acidosis (Acute) Objective: Chest x-ray was personally reviewed showing no acute infiltrate, but cardiomegaly. Patient also had a sleep study from 2007 that was reviewed showing a need for CPAP 12 cm of water. Unfortunately, patient's BMI at that time was 38. Patient did have significant periodic limb movements noted. Patient does not have any echocardiogram in our system, but reportedly has had one at [facility] with his primary care physician. - Physical Exam Vitals/I&O's: Vital Signs Temp Pulse Resp BP Pulse Ox 37.2 C 91 85 H 104/65 98 07/10/19 08:00 07/10/19 09:00 07/10/19 09:00 07/10/19 09:00 07/10/19 09:00 Oxygen Flow Rate (L/min) 3 Oxygen Delivery Method Nasal Cannula Weight: 163.1 kg Body Mass Index (BMI) 51.5 Intake and Output for Last 24 Hours 07/08/19 07/09/19 07/10/19 23:59 23:59 23:59 Intake Total 3983.75 / 4067.50 1121.25 / 1121.25 Output Total 275 / 275 400 / 400 Balance 3708.75 / 3792.50 721.25 / 721.25 General: Alert, Oriented x3, Cooperative, No apparent distress, Well developed, Well nourished, - - Morbidly obese. No conversational dyspnea. HEENT: Atraumatic, PERRLA, EOMI, Normocephalic Oral: Moist Mucosa, No Gingival or Mucosal Lesions/ Ulcerations, - - Crowded posterior pharynx Neck: Supple, No JVD, No Nodes, Trachea Midline Lungs: No rhonchi, No wheeze, No rales, Diminished, - - Symmetric expansion. No dullness to percussion. Cardiovascular: Normal S1, Normal S2, No murmurs, Irregular Rate, No rub noted, No Gallop Abdomen: Bowel Sounds Present, Soft, Non Tender, Non-Distended, Obese Extremities: No clubbing, No cyanosis, Edema - Bilateral lower extremities Skin: Ulcer/ Wound - Left lower extremity Musculoskeletal: No Tenderness to Palpation of Joints or Extremities Lymphatic: No Cervical, Supraclavicular, or Inguinal Adenopathy Neurological: Cranial nerves II-XII grossly intact, Neuro grossly intact - Slight decrease in sensation bilateral lower extremities, Motor Exam 5/5 strength throughout Psych/Mental Status: Alert and oriented to time, place, person, mood and affect Microbiology Past 72 Hours 07/09/19 16:00 Mucosa - Nose Influenza Types A,B Direct FA (ANDERS) - Final Laboratory Results 07/09/19 15:35: WBC 14.1 H, RBC 4.80, Hgb 15.3, Hct 45.8, MCV 95.4 H, MCH 31.9, MCHC 33.4, RDW Std Deviation 50.9 H, RDW Coeff of Kalyan 14.6, Plt Count 238, MPV 9.6, Immature Gran % (Auto) 0.800, Neut % (Auto) 92.6 H, Lymph % (Auto) 4.4 L, [place] % (Auto) 2.1, Eos % (Auto) 0.0, Baso % (Auto) 0.1, Absolute Neuts (auto) 13.0 H, Absolute Lymphs (auto) 0.62 L, Nucleated RBC % 0, Platelet Estimate ADEQUATE, RBC Morphology N CHROM, Anisocytosis RARE, Macrocytosis RARE 07/09/19 15:35: PT 25.7 H, INR 2.4, APTT 31.9 07/09/19 15:35: Sodium 136, Potassium 3.9, Chloride 101, Carbon Dioxide 28.0, Anion Gap 7, BUN 23 H, Creatinine 1.19, Estim Creat Clear Calc 61.34, Est GFR (MDRD) Af Amer 78, Est GFR (MDRD) Non-Af 65, BUN/Creatinine Ratio 19.3, Glucose 142 H, Calcium 9.2, Total Bilirubin 0.70, AST 33, ALT 32, Alkaline Phosphatase 69, Total Protein 7.8, Albumin 3.5, Globulin 4.3 H, Albumin/Globulin Ratio 0.8 L 07/09/19 15:35: Lactic Acid 3.2 H* 07/09/19 15:49: Urine Color Yellow, Urine Clarity Clear, Urine pH 5.0, Ur Specific [place] 1.015, Urine Protein Negative, Urine Glucose (UA) Normal, Urine Ketones Negative, Urine Occult Blood Negative, Urine Nitrite Negative, Urine Bilirubin Negative, Urine Urobilinogen Normal, Ur Leukocyte Esterase 25 H, Urine RBC 0 SEEN, Urine WBC 0-5 SEEN, Ur Squamous Epith Cells 0 SEEN, Urine Bacteria 0 SEEN, Urine Mucus 0 SEEN 07/09/19 15:55: Hemoglobin A1c 6.6 H 07/09/19 15:55: Uric Acid 5.6, Magnesium 1.4 L 07/09/19 18:50: S.aureus Protein A PCR NEGATIVE, MRSA (PCR) Negative 07/09/19 18:53: PT Cancelled, INR Cancelled 07/09/19 20:00: Lactic Acid 2.8 H* 07/09/19 23:45: Lactic Acid 2.1 H* 07/10/19 04:45: WBC 22.8 H, RBC 4.18 L, Hgb 13.6, Hct 40.2, MCV 96.2 H, MCH 32.5 H, MCHC 33.8, RDW Std Deviation 53.2 H, RDW Coeff of Kalyan 15.1 H, Plt Count 201, MPV 9.5, Immature Gran % (Auto) 2.700 H, Neut % (Auto) 89.5 H, Lymph % (Auto) 3.1 L, [place] % (Auto) 4.0, Eos % (Auto) 0.5, Baso % (Auto) 0.2, Absolute Neuts (auto) 20.4 H, Absolute Lymphs (auto) 0.71 L, Nucleated RBC % 0, Differential Comment 07/10/19 04:45: PT 24.4 H, INR 2.2 07/10/19 04:45: Sodium 136, Potassium 4.1, Chloride 102, Carbon Dioxide 29.0, Anion Gap 5, BUN 18, Creatinine 0.89, Estim Creat Clear Calc 82.02, Est GFR (MDRD) Af Amer 109, Est GFR (MDRD) Non-Af 90, BUN/Creatinine Ratio 20.1 H, Glucose 112 H, Calcium 8.0 L, Phosphorus 3.1, Magnesium 2.4, Triglycerides 83, Cholesterol 111, LDL Cholesterol 40, VLDL Cholesterol 17, HDL Cholesterol 54 Current Medications Acetaminophen (Tylenol) 650 mg PO Q6 TED Last Admin: 07/10/19 05:34 Dose: 650 mg Documented by: Al Hydroxide/Mg Hydroxide (Mylanta Ii) 30 ml PO Q6H PRN PRN PRN Reason: Gastric Burning Albuterol Sulfate (Ventolin Aerosols) 2.5 mg INHALATION Q2H PRN PRN PRN Reason: SOB/Wheezing Allopurinol (Zyloprim) 300 mg PO DAILY@0800 [facility] Last Admin: 07/10/19 08:04 Dose: 300 mg Documented by: Famotidine (Pepcid) 20 mg PO BID [facility] Last Admin: 07/10/19 08:04 Dose: 20 mg Documented by: Guaifenesin (Robitussin) 10 ml PO Q4H PRN PRN PRN Reason: COUGH Sodium Chloride () 1,000 mls @ 150 mls/hr IV .Q6H40M [facility] Last Admin: 07/10/19 05:35 Dose: 150 mls/hr Documented by: Cefepime HCl 2 gm/ Sodium (Chloride) 100 mls @ 200 mls/hr IV Q8 [facility] Last Infusion: 07/10/19 06:05 Dose: Infused Documented by: Sodium Chloride () 250 mls @ 15 mls/hr IV .[id number] PRN PRN Reason: Saline Flush Sodium Chloride () 250 mls @ 15 mls/hr IV .[id number] PRN PRN Reason: Additional IVPB Infusion Influenza Virus Vaccine Quadrival (Flucelvax /Fluzone ) 0.5 ml IM .ONCE ONE Stop: 07/11/19 10:01 Magnesium Hydroxide (Milk Of Magnesia) 30 ml PO DAILY PRN PRN PRN Reason: Constipation [facility] 400[facility] Admin: 07/10/19 08:03 Dose: 400 mg Documented by: Metoprolol Tartrate (Lopressor (Beta Muriel)) 2.5 mg IV Q6H PRN PRN PRN Reason: sustained HR >115 Metoprolol Tartrate (Lopressor (Beta Muriel)) 25 mg PO BID [facility] Last Admin: 07/10/19 08:04 Dose: 25 mg Documented by: Ondansetron HCl (Zofran) 4 mg IV Q8H PRN PRN PRN Reason: NAUSEA/VOMITING Oxycodone HCl (Oxyir) 5 mg PO Q4H PRN PRN PRN Reason: Pain Score 4-5/10 Potassium Chloride (K-Dur) 20 meq PO DAILY [facility] Last Admin: 07/10/19 08:04 Dose: 20 meq Documented by: Prochlorperazine Edisylate (Compazine Iv) 5 mg IV Q4H PRN PRN PRN Reason: Breakthrough Nausea/Vomiting Senna/Docusate Sodium (Senokot-S, Sravani-Colace) 2 tablet PO BID PRN PRN PRN Reason: Constipation Sodium Chloride () 10 - 40 ml IV UD PRN PRN Reason: SALINE FLUSH Last Admin: 07/09/19 23:51 Dose: 20 ml Documented by: Throat Lozenges (Cepacol Sore Throat Lozenge) 1 lozenge MUCOUS MEM Q2H PRN PRN PRN Reason: SORE THROAT Warfarin Sodium (Coumadin (Pbkc)) 5 mg PO SuTuThSa@1700 [facility] Last Admin: 07/09/19 21:41 Dose: 5 mg Documented by: Warfarin Sodium (Coumadin (Pbkc)) 7.5 mg PO MoWeFr@1700 [facility] Clinical Impression(s) from Imaging Studies Chest X-Ray 07/09/19 15:40 IMPRESSION: Mild cardiomegaly. No acute chest disease. Electronically Signed: Esteban Yepez MD at 16:12 EST , Service support , Assessment/Plan Active and Suspected Problems Severe sepsis (Acute) Cellulitis (Acute) Venous stasis ulcers (Acute) Hyperglycemia (Acute) Hypoxia (Acute) Lactic acidosis (Acute) RECOMMENDATIONS: 1. Okay to discontinue vancomycin, continue cefepime 2. Initiate AVAPS for sleep apnea 3. Wound nurse to evaluate lower extremities 4. Reinitiate beta-umriel. Continue to hold SUNG inhibitor 5. Okay to leave the intensive care unit from my perspective IMPRESSIONS: 1. Severe sepsis secondary to probable infected venous stasis ulcer Patient's MRSA swab was negative, so vancomycin can be discontinued. Agree with continuation of cefepime for now. Await results of cultures. Initial tachypnea may have been secondary to compensation for lactic acidosis in the setting of possible obstructive lung disease given smoking history. Evaluation of COPD would have to be completed as an outpatient. 2. Chronic venous insufficiency with left lower extremity venous stasis ulcer Wound looks relatively benign clinically. Cultures are currently pending. Compression and elevation has been ordered. Wound nurse to evaluate. Do not believe plastics needs to be involved at this time. 3. Hypoxia/untreated sleep apnea/possible obstructive lung disease Patient with significant hypoxia overnight, but this was related to apneic events clinically. Patient's previous CPAP of 12 cm of water is likely not sufficient given an increase in BMI of over 10 kg/m?. Patient will be placed on AVAPS while in the hospital. Patient will need a sleep study as an outpatient as BiPAP will likely be necessary. Did stress to the patient the role of weight loss and the overall disease plan of care. Patient would also benefit from pulmonary function testing as an outpatient. Could consider as needed bronchodilators, but steroids are likely not indicated. 4. Hyperglycemia/morbid obesity/chronic A. fib/chronic anticoagulation/gout/hypertension Complicates care, management, recovery and prognosis. Hemoglobin A1c is currently pending. Will reinitiate patient's beta-muriel to avoid A. fib with RVR. Continue to hold SUNG inhibitor given marginal blood pressures. Possible addition of sliding scale insulin if glucose starts to become elevated. Patient would benefit from diabetic teaching for probable prediabetes. Code Visit Inpatient E&M: 12359 Init Hosp L3
--- NOTE | 2019-07-10 10:45 | CASEMGMT ---
Admission Nursing notes indicate pt was asked if he had a living will or health care POA and pt declined. Information on Advance directives was offered and pt declined further information as well. MIRZA Lovett
--- NOTE | 2019-07-10 10:57 | CASEMGMT ---
RN CM Assessment Introduced role of RN CM to patient.? Patient is alert, oriented and able?to participate in RN CM Assessment. ?Care providers, pharmacy, and demographics verified. Presentation: Fever, ROSAS, Mild cough, generally not feeling well Admit Dx: Severe Sepsis, Cellulitis, Hypoxia, Cough Re-Admit: No Barriers/Issues: None PCP: Jeff Gore III Specialists: None Preferred Pharmacy: [facility] Insurance: [facility], [facility] Rx Benefit:?Yes ?LNOK: Laura Pal LW/HPOA: States has LW, does not have HPOA and declines offered paperwork or completion on this admission. States that he has an electrical & instrumentation supervisor that he is going to complete it with. Living Arrangements: Lives with in a 2SH, Bedroom on . 3 [address] to enter home.? ADL?s: Independent with ambulation and ADLs Transportation: Both patient and drive DME: CPAP- cannot recall which agency it was through. States that he got it in [place]. Denies any other DME. HHC: None SNF: None Goal: Home and does not think will have any needs. If home O2 required at DC- In network DME list given and preference is [employer]. If additional PT is recommended, would prefer Outpatient PT with [facility]. Denies any concerns, issues, needs or questions with DC planning at this time. Aware CM remains available for any emerging needs. DC PLAN: Home with possible Home O2 and Outpatient PT. KEVIN Mancera
--- NOTE | 2019-07-10 14:39 | PCM.HP.ID ---
Problem List (1) Severe sepsis Status: Acute Reason for Consult: sepsis Consulted by: Dr. Montgomery History of Present Illness: The patient is a 69 year old M with h/o obesity, venous stasis, presented with one day h/o shakes, chills, fever, nausea, mild dyspnea. Has some chronic dyspnea on exertion. Hit his L hermosillo about 5 days ago, had not noticed any increased pain/swelling/redness/drainage. No sick contacts. No sputum. Sx suddenly started 07/08, came to ED, started on vanc/cefepime, feeling much better today. Presentation similar to past episodes of cellulitis. Full ROS Performed and neg except as noted above. - Medical History Past Medical History (Chronic Problems): Chronic Problems Super obesity (Chronic) Obstructive sleep apnea (Chronic) he does not wear PAP Hyperuricemia (Chronic) Gout (Chronic) Hypertension (Chronic) Venous insufficiency (Chronic) Atrial fibrillation (Chronic) History of DVT (deep vein thrombosis) (Chronic) Chronic anticoagulation (Chronic) On warfarin Allergies/Adverse Reactions: Allergies Penicillins Allergy (Verified 07/09/19 15:21) Nausea/Vom/Diarrhea adhesive Adverse Reaction (Verified 07/09/19 15:22) Rash Home Medications: Ambulatory Orders Medication Instructions Recorded Allopurinol 300 mg PO DAILY 07/09/19 Lisinopril 40 mg PO DAILY 07/09/19 Metoprolol Tartrate 25 mg PO BID 07/09/19 Potassium Chloride 20 meq PO DAILY 07/09/19 Warfarin [Coumadin ([facility])] 5 mg PO DAILY 07/09/19 hydroCHLOROthiazide 12.5 mg PO DAILY 07/09/19 [Hydrochlorothiazide] - Social History SMOKING STATUS:: Current every day smoker Vital Signs Temp Pulse Resp BP Pulse Ox 98.1 F 87 17 108/83 H 98 07/10/19 14:00 07/10/19 14:00 07/10/19 14:00 07/10/19 14:00 07/10/19 14:00 Oxygen Flow Rate (L/min) 3 Oxygen Delivery Method Nasal Cannula Weight: 163.1 kg Body Mass Index (BMI) 51.5 Microbiology Past 72 Hours 07/09/19 18:50 Gram Stain - Final Wound - Leg, Left Wound Culture - Preliminary Staphylococcus species 07/09/19 15:49 Urine Culture - Preliminary Urine, Clean Catch GPC Poss Enterococcus sp 07/09/19 16:00 Influenza Types A,B Direct FA (ANDERS) - Final Mucosa - Nose Laboratory Tests Past 24 Hrs 07/09/19 07/09/19 07/09/19 15:35 15:35 15:35 WBC 14.1 H RBC 4.80 Hgb 15.3 Hct 45.8 MCV 95.4 H MCH 31.9 MCHC 33.4 RDW Std Deviation 50.9 H RDW Coeff of [place]aly[place] 14.6 Plt Count 238 MPV 9.6 Immature Gran % (Auto) 0.800 Neut % (Auto) 92.6 H Lymph % (Auto) 4.4 L [place] % (Auto) 2.1 Eos % (Auto) 0.0 Baso % (Auto) 0.1 Absolute Neuts (auto) 13.0 H Absolute Lymphs (auto) 0.62 L Nucleated RBC % 0 Differential Comment Platelet Estimate ADEQUATE RBC Morphology N CHROM Anisocytosis RARE Macrocytosis RARE PT 25.7 H INR 2.4 APTT 31.9 Sodium 136 Potassium 3.9 Chloride 101 Carbon Dioxide 28.0 Anion Gap 7 BUN 23 H Creatinine 1.19 Estim Creat Clear Calc 61.34 Est GFR (MDRD) Af Amer 78 Est GFR (MDRD) Non-Af 65 BUN/Creatinine Ratio 19.3 Glucose 142 H Hemoglobin A1c Lactic Acid Uric Acid Calcium 9.2 Phosphorus Magnesium Total Bilirubin 0.70 AST 33 ALT 32 Alkaline Phosphatase 69 Total Protein 7.8 Albumin 3.5 Globulin 4.3 H Albumin/Globulin Ratio 0.8 L Triglycerides Cholesterol LDL Cholesterol VLDL Cholesterol HDL Cholesterol Urine Color Urine Clarity Urine pH Ur Specific [place] Urine Protein Urine Glucose (UA) Urine Ketones Urine Occult Blood Urine Nitrite Urine Bilirubin Urine Urobilinogen Ur Leukocyte Esterase Urine RBC Urine WBC Ur Squamous Epith Cells Urine Bacteria Urine Mucus S.aureus Protein A PCR MRSA (PCR) 07/09/19 07/09/19 07/09/19 15:35 15:49 15:55 WBC RBC Hgb Hct MCV MCH MCHC RDW Std Deviation RDW Coeff of [place] Plt Count MPV Immature Gran % (Auto) Neut % (Auto) Lymph % (Auto) [place] % (Auto) Eos % (Auto) Baso % (Auto) Absolute Neuts (auto) Absolute Lymphs (auto) Nucleated RBC % Differential Comment Platelet Estimate RBC Morphology Anisocytosis Macrocytosis PT INR APTT Sodium Potassium Chloride Carbon Dioxide Anion Gap BUN Creatinine Estim Creat Clear Calc Est GFR (MDRD) Af Amer Est GFR (MDRD) Non-Af BUN/Creatinine Ratio Glucose Hemoglobin A1c 6.6 H Lactic Acid 3.2 H* Uric Acid Calcium Phosphorus Magnesium Total Bilirubin AST ALT Alkaline Phosphatase Total Protein Albumin Globulin Albumin/Globulin Ratio Triglycerides Cholesterol LDL Cholesterol VLDL Cholesterol HDL Cholesterol Urine Color Yellow Urine Clarity Clear Urine pH 5.0 Ur Specific [place] 1.015 Urine Protein Negative Urine Glucose (UA) Normal Urine Ketones Negative Urine Occult Blood Negative Urine Nitrite Negative Urine Bilirubin Negative Urine Urobilinogen Normal Ur Leukocyte Esterase 25 H Urine RBC 0 SEEN Urine WBC 0-5 SEEN Ur Squamous Epith Cells 0 SEEN Urine Bacteria 0 SEEN Urine Mucus 0 SEEN S.aureus Protein A PCR MRSA (PCR) 07/09/19 07/09/19 07/09/19 15:55 18:50 18:53 WBC RBC Hgb Hct MCV MCH MCHC RDW Std Deviation RDW Coeff of [place] Plt Count MPV Immature Gran % (Auto) Neut % (Auto) Lymph % (Auto) [place] % (Auto) Eos % (Auto) Baso % (Auto) Absolute Neuts (auto) Absolute Lymphs (auto) Nucleated RBC % Differential Comment Platelet Estimate RBC Morphology Anisocytosis Macrocytosis PT Cancelled INR Cancelled APTT Sodium Potassium Chloride Carbon Dioxide Anion Gap BUN Creatinine Estim Creat Clear Calc Est GFR (MDRD) Af Amer Est GFR (MDRD) Non-Af BUN/Creatinine Ratio Glucose Hemoglobin A1c Lactic Acid Uric Acid 5.6 Calcium Phosphorus Magnesium 1.4 L Total Bilirubin AST ALT Alkaline Phosphatase Total Protein Albumin Globulin Albumin/Globulin Ratio Triglycerides Cholesterol LDL Cholesterol VLDL Cholesterol HDL Cholesterol Urine Color Urine Clarity Urine pH Ur Specific [place] Urine Protein Urine Glucose (UA) Urine Ketones Urine Occult Blood Urine Nitrite Urine Bilirubin Urine Urobilinogen Ur Leukocyte Esterase Urine RBC Urine WBC Ur Squamous Epith Cells Urine Bacteria Urine Mucus S.aureus Protein A PCR NEGATIVE MRSA (PCR) Negative 07/09/19 07/09/19 07/10/19 20:00 23:45 04:45 WBC 22.8 H RBC 4.18 L Hgb 13.6 Hct 40.2 MCV 96.2 H MCH 32.5 H MCHC 33.8 RDW Std Deviation 53.2 H RDW Coeff of [place] 15.1 H Plt Count 201 MPV 9.5 Immature Gran % (Auto) 2.700 H Neut % (Auto) 89.5 H Lymph % (Auto) 3.1 L [place] % (Auto) 4.0 Eos % (Auto) 0.5 Baso % (Auto) 0.2 Absolute Neuts (auto) 20.4 H Absolute Lymphs (auto) 0.71 L Nucleated RBC % 0 Differential Comment Platelet Estimate RBC Morphology Anisocytosis Macrocytosis PT INR APTT Sodium Potassium Chloride Carbon Dioxide Anion Gap BUN Creatinine Estim Creat Clear Calc Est GFR (MDRD) Af Amer Est GFR (MDRD) Non-Af BUN/Creatinine Ratio Glucose Hemoglobin A1c Lactic Acid 2.8 H* 2.1 H* Uric Acid Calcium Phosphorus Magnesium Total Bilirubin AST ALT Alkaline Phosphatase Total Protein Albumin Globulin Albumin/Globulin Ratio Triglycerides Cholesterol LDL Cholesterol VLDL Cholesterol HDL Cholesterol Urine Color Urine Clarity Urine pH Ur Specific [place] Urine Protein Urine Glucose (UA) Urine Ketones Urine Occult Blood Urine Nitrite Urine Bilirubin Urine Urobilinogen Ur Leukocyte Esterase Urine RBC Urine WBC Ur Squamous Epith Cells Urine Bacteria Urine Mucus S.aureus Protein A PCR MRSA (PCR) 07/10/19 07/10/19 04:45 04:45 WBC RBC Hgb Hct MCV MCH MCHC RDW Std Deviation RDW Coeff of [place] Plt Count MPV Immature Gran % (Auto) Neut % (Auto) Lymph % (Auto) [place] % (Auto) Eos % (Auto) Baso % (Auto) Absolute Neuts (auto) Absolute Lymphs (auto) Nucleated RBC % Differential Comment Platelet Estimate RBC Morphology Anisocytosis Macrocytosis PT 24.4 H INR 2.2 APTT Sodium 136 Potassium 4.1 Chloride 102 Carbon Dioxide 29.0 Anion Gap 5 BUN 18 Creatinine 0.89 Estim Creat Clear Calc 82.02 Est GFR (MDRD) Af Amer 109 Est GFR (MDRD) Non-Af 90 BUN/Creatinine Ratio 20.1 H Glucose 112 H Hemoglobin A1c Lactic Acid Uric Acid Calcium 8.0 L Phosphorus 3.1 Magnesium 2.4 Total Bilirubin AST ALT Alkaline Phosphatase Total Protein Albumin Globulin Albumin/Globulin Ratio Triglycerides 83 Cholesterol 111 LDL Cholesterol 40 VLDL Cholesterol 17 HDL Cholesterol 54 Urine Color Urine Clarity Urine pH Ur Specific [place] Urine Protein Urine Glucose (UA) Urine Ketones Urine Occult Blood Urine Nitrite Urine Bilirubin Urine Urobilinogen Ur Leukocyte Esterase Urine RBC Urine WBC Ur Squamous Epith Cells Urine Bacteria Urine Mucus S.aureus Protein A PCR MRSA (PCR) - Other Studies Radiology: [] reviewed Other Studies: [] Route of nutrition/ use of supplements: [] Nutritional Intake: [] IV Site: [] Parrish Catheter: [] - Physical Exam General: Alert, Oriented x3, Cooperative, No apparent distress HEENT: Atraumatic, PERRLA, EOMI Neck: Supple, No Nodes Lungs: Clear to auscultation, Normal air movement Cardiovascular: Irregular Rate Abdomen: Soft, Non Tender, Non-Distended, Obese Extremities: Edema Skin: - - reviewed photos, L hermosillo erythema IV Site: Peripheral, without redness Musculoskeletal: No Tenderness to Palpation of Joints or Extremities Neurological: Cranial nerves II-XII grossly intact - Assessment/Plan Antibiotics: [] Assessment/Plan: [] Active and Suspected Problems Severe sepsis (Acute) Cellulitis (Acute) Venous stasis ulcers (Acute) Hyperglycemia (Acute) Hypoxia (Acute) Lactic acidosis (Acute) severe sepsis due to L hermosillo cellulitis - will do viral panel. Staph aureus pcr of wound neg, wound cx showing heavy staph-like. Majority of CoNS are methicillin resistant, so will cover with vanc/cefazolin. Tolerates keflex with no issues in the past. Will follow, thank you, d/w nursing.
--- NOTE | 2019-07-10 15:28 | PCM.PROGNOTE ---
Patient Problems: Active and Suspected Problems Severe sepsis (Acute) Cellulitis (Acute) Venous stasis ulcers (Acute) Hyperglycemia (Acute) Hypoxia (Acute) Lactic acidosis (Acute) Subjective: Patient was seen and examined in the ICU today, I talked briefly with pulmonary medicine and they were okay with the patient going out to PCU. I also had infectious diseases see the patient regarding antibiotic coverage, they recommended Ancef plus vancomycin for now. There is a Staph species growing out of his drainage from his leg-it does not appear to be MRSA. Patient has no complaints of shortness of breath or chest pain. - Physical Exam Vitals/I&O's: Vital Signs Temp Pulse Resp BP Pulse Ox 97.9 F 78 18 116/80 98 07/10/19 15:19 07/10/19 15:19 07/10/19 15:19 07/10/19 15:07/10/19 15:19 Oxygen Flow Rate (L/min) 3 Oxygen Delivery Method Nasal Cannula Weight: 163.1 kg Body Mass Index (BMI) 51.5 Intake and Output for Last 24 Hours 07/08/19 07/09/19 07/10/19 23:59 23:59 23:59 Intake Total 3983.75 / 4067.50 2461.25 / 2461.25 Output Total 275 / 275 650 / 650 Balance 3708.75 / 3792.50 1811.25 / 1811.25 General: Alert, Oriented x3, Cooperative, No apparent distress, Well developed HEENT: Atraumatic, PERRLA, EOMI, Normocephalic Oral: Moist Mucosa Neck: Supple, No JVD, Trachea Midline, Thyroid Normal Size and Texture Lungs: Clear to auscultation, Normal air movement, No rhonchi, No wheeze, No rales Cardiovascular: No murmurs, PMI Normal, Irregular Rate, No rub noted Abdomen: Bowel Sounds Present, Soft, Non Tender, Non-Distended, Obese Extremities: No clubbing, Capillary Refill Less than 3 Seconds, - - Patient's lower legs were wrapped with Sriram wraps, these were not removed for inspection of the areas underneath today Neurological: Cranial nerves II-XII grossly intact, Neuro grossly intact, Sensory exam intact to light touch and pain Psych/Mental Status: Normal Affect, Appropriate, Alert and oriented to time, place, person, mood and affect Microbiology Past 72 Hours 07/09/19 18:50 Wound - Leg, Left Gram Stain - Final 07/09/19 18:50 Wound - Leg, Left Wound Culture - Preliminary Staphylococcus species 07/09/19 15:49 Urine, Clean Catch Urine Culture - Preliminary GPC Poss Enterococcus sp 07/09/19 16:00 Mucosa - Nose Influenza Types A,B Direct FA (ANDERS) - Final Laboratory Results 07/09/19 15:35: WBC 14.1 H, RBC 4.80, Hgb 15.3, Hct 45.8, MCV 95.4 H, MCH 31.9, MCHC 33.4, RDW Std Deviation 50.9 H, RDW Coeff of Kaly[place] 14.6, Plt Count 238, MPV 9.6, Immature Gran % (Auto) 0.800, Neut % (Auto) 92.6 H, Lymph % (Auto) 4.4 L, [place] % (Auto) 2.1, Eos % (Auto) 0.0, Baso % (Auto) 0.1, Absolute Neuts (auto) 13.0 H, Absolute Lymphs (auto) 0.62 L, Nucleated RBC % 0, Platelet Estimate ADEQUATE, RBC Morphology N CHROM, Anisocytosis RARE, Macrocytosis RARE 07/09/19 15:35: PT 25.7 H, INR 2.4, APTT 31.9 07/09/19 15:35: Sodium 136, Potassium 3.9, Chloride 101, Carbon Dioxide 28.0, Anion Gap 7, BUN 23 H, Creatinine 1.19, Estim Creat Clear Calc 61.34, Est GFR (MDRD) Af Amer 78, Est GFR (MDRD) Non-Af 65, BUN/Creatinine Ratio 19.3, Glucose 142 H, Calcium 9.2, Total Bilirubin 0.70, AST 33, ALT 32, Alkaline Phosphatase 69, Total Protein 7.8, Albumin 3.5, Globulin 4.3 H, Albumin/Globulin Ratio 0.8 L 07/09/19 15:35: Lactic Acid 3.2 H* 07/09/19 15:49: Urine Color Yellow, Urine Clarity Clear, Urine pH 5.0, Ur Specific [place] 1.015, Urine Protein Negative, Urine Glucose (UA) Normal, Urine Ketones Negative, Urine Occult Blood Negative, Urine Nitrite Negative, Urine Bilirubin Negative, Urine Urobilinogen Normal, Ur Leukocyte Esterase 25 H, Urine RBC 0 SEEN, Urine WBC 0-5 SEEN, Ur Squamous Epith Cells 0 SEEN, Urine Bacteria 0 SEEN, Urine Mucus 0 SEEN 07/09/19 15:55: Hemoglobin A1c 6.6 H 07/09/19 15:55: Uric Acid 5.6, Magnesium 1.4 L 07/09/19 18:50: S.aureus Protein A PCR NEGATIVE, MRSA (PCR) Negative 07/09/19 18:53: PT Cancelled, INR Cancelled 07/09/19 20:00: Lactic Acid 2.8 H* 07/09/19 23:45: Lactic Acid 2.1 H* 07/10/19 04:45: WBC 22.8 H, RBC 4.18 L, Hgb 13.6, Hct 40.2, MCV 96.2 H, MCH 32.5 H, MCHC 33.8, RDW Std Deviation 53.2 H, RDW Coeff of [place]aly[place] 15.1 H, Plt Count 201, MPV 9.5, Immature Gran % (Auto) 2.700 H, Neut % (Auto) 89.5 H, Lymph % (Auto) 3.1 L, [place] % (Auto) 4.0, Eos % (Auto) 0.5, Baso % (Auto) 0.2, Absolute Neuts (auto) 20.4 H, Absolute Lymphs (auto) 0.71 L, Nucleated RBC % 0, Differential Comment 07/10/19 04:45: PT 24.4 H, INR 2.2 07/10/19 04:45: Sodium 136, Potassium 4.1, Chloride 102, Carbon Dioxide 29.0, Anion Gap 5, BUN 18, Creatinine 0.89, Estim Creat Clear Calc 82.02, Est GFR (MDRD) Af Amer 109, Est GFR (MDRD) Non-Af 90, BUN/Creatinine Ratio 20.1 H, Glucose 112 H, Calcium 8.0 L, Phosphorus 3.1, Magnesium 2.4, Triglycerides 83, Cholesterol 111, LDL Cholesterol 40, VLDL Cholesterol 17, HDL Cholesterol 54 Current Medications Acetaminophen (Tylenol) 650 mg PO Q6 TED Last Admin: 07/10/19 12:02 Dose: 650 mg Documented by: Al Hydroxide/Mg Hydroxide (Mylanta Ii) 30 ml PO Q6H PRN PRN PRN Reason: Gastric Burning Albuterol Sulfate (Ventolin Aerosols) 2.5 mg INHALATION Q2H PRN PRN PRN Reason: SOB/Wheezing Allopurinol (Zyloprim) 300 mg PO DAILY@0800 [facility] Last Admin: 07/10/19 08:04 Dose: 300 mg Documented by: Famotidine (Pepcid) 20 mg PO BID [facility] Last Admin: 07/10/19 08:04 Dose: 20 mg Documented by: Guaifenesin (Robitussin) 10 ml PO Q4H PRN PRN PRN Reason: COUGH Sodium Chloride () 250 mls @ 15 mls/hr IV .[id number] PRN PRN Reason: Saline Flush Sodium Chloride () 250 mls @ 15 mls/hr IV .[id number] PRN PRN Reason: Additional IVPB Infusion Cefazolin Sodium 2 gm/ Sodium (Chloride) 110 mls @ 150 mls/hr IV Q8 [facility] Vancomycin IV Pharmacy to Dose (1 ea/ Sodium Chloride) 500 mls @ 250 mls/hr IV X1 PRN; Protocol PRN Reason: Rx to Dose Influenza Virus Vaccine Quadrival (Flucelvax /Fluzone ) 0.5 ml IM .ONCE ONE Stop: 07/11/19 10:01 Magnesium Hydroxide (Milk Of Magnesia) 30 ml PO DAILY PRN PRN PRN Reason: Constipation [facility] ([facility]-Ox 400) [facility] Last Admin: 07/10/19 08:03 Dose: 400 mg Documented by: Metoprolol Tartrate (Lopressor (Beta Muriel)) 2.5 mg IV Q6H PRN PRN PRN Reason: sustained HR >115 Metoprolol Tartrate (Lopressor (Beta Muriel)) 25 mg PO BID [facility] Last Admin: 07/10/19 08:04 Dose: 25 mg Documented by: Ondansetron HCl (Zofran) 4 mg IV Q8H PRN PRN PRN Reason: NAUSEA/VOMITING Oxycodone HCl (Oxyir) 5 mg PO Q4H PRN PRN PRN Reason: Pain Score 4-5/10 Potassium Chloride (K-Dur) 20 meq PO DAILY [facility] Last Admin: 07/10/19 08:04 Dose: 20 meq Documented by: Prochlorperazine Edisylate (Compazine Iv) 5 mg IV Q4H PRN PRN PRN Reason: Breakthrough Nausea/Vomiting Senna/Docusate Sodium (Senokot-S, Sravani-Colace) 2 tablet PO BID PRN PRN PRN Reason: Constipation Sodium Chloride () 10 - 40 ml IV UD PRN PRN Reason: SALINE FLUSH Last Admin: 07/09/19 23:51 Dose: 20 ml Documented by: Throat Lozenges (Cepacol Sore Throat Lozenge) 1 lozenge MUCOUS MEM Q2H PRN PRN PRN Reason: SORE THROAT Warfarin Sodium (Coumadin (Pbkc)) 5 mg PO SuTuThSa@1700 [facility] Last Admin: 07/09/19 21:41 Dose: 5 mg Documented by: Warfarin Sodium (Coumadin (Pbkc)) 7.5 mg PO MoWeFr@1700 [facility] Medical Necessity - Tobacco Use Smoking Status: Current some day smoker Tobacco Use: Cigars, - - he did smoke cigarettes for about a year many years ago Assessment/Plan All Active Problems Severe sepsis (Acute) Cellulitis (Acute) Venous stasis ulcers (Acute) Hyperglycemia (Acute) Hypoxia (Acute) Lactic acidosis (Acute) #1 sepsis-secondary to cellulitis, infectious diseases is recommended vancomycin and Ancef, patient is stable for transfer to PCU #2 hypoxia-probably secondary to underlying chronic obstructive pulmonary disease from untreated sleep apnea-patient will be on AVAPS at night, pulmonary medicine is participating in his care #3 chronic atrial fibrillation #4 chronic anticoagulation with Coumadin-patient's INR is therapeutic #5 class III obesity #6 essential hypertension #7 venous stasis of the lower legs with cellulitis of the left lower leg Code Visit Inpatient E&M: [id number] [facility] Hosp L2
--- NOTE | 2019-07-10 16:43 | PCM.RX.CS ---
Consult Pharmacy has been consulted to manage selected antiobiotic: Vancomycin Type of Consult: New start Suspected Infection: Skin/Soft tissue Prior Doses of Antibiotics Received/Current Regimen: Patient received 2000mg iv x1 on 07.09.19. Labs: Sodium 136 mmol/L (136-145) 07/10/19 04:45 Potassium 4.1 mmol/L (3.5-5.1) 07/10/19 04:45 Chloride 102 mmol/L (98-107) 07/10/19 04:45 Carbon Dioxide 29.0 mmol/L (21.0-32.0) 07/10/19 04:45 Anion Gap 5 (5-15) 07/10/19 04:45 BUN 18 mg/dL (7-18) 07/10/19 04:45 Creatinine 0.89 mg/dL (0.70-1.30) 07/10/19 04:45 Est GFR (MDRD) Af Amer 109 mL/min (>60) 07/10/19 04:45 Est GFR (MDRD) Non-Af 90 mL/min (>60) 07/10/19 04:45 BUN/Creatinine Ratio 20.1 RATIO (10-20) H 07/10/19 04:45 Glucose 112 mg/dL (74-106) H 07/10/19 04:45 Microbiology: Microbiology 07/09/19 18:50 Wound - Leg, Left Gram Stain - Final 07/09/19 18:50 Wound - Leg, Left Wound Culture - Preliminary Staphylococcus species 07/09/19 15:49 Urine, Clean Catch Urine Culture - Preliminary GPC Poss Enterococcus sp 07/09/19 16:00 Mucosa - Nose Influenza Types A,B Direct FA (ANDERS) - Final Weight used for dosin kg Estimated Creatinine Clearance: ~123ml/min Goal Trough: 15-20 mcg/mL Pharmacy Plan for Drug Dosing: Review of renal is Cr 0.89 and Cr Cl >100 ml/min for adjusted body weight of 109kg. Will begin 2000mg iv q12h. Trough level has been ordered for before 4th dose on 07.12.19. Goal range is 15-20mcg/ml. Pharmacy Service will continue to monitor and adjust dosing as required. Follow-Up Labs: Trough Vancomycin - 07.12.19 @0530 before 0600 dose
[2019-07-10] MEDS: Cefazolin 2 GM in 0.9% Normal Saline 100 ML IV (17:09)
[2019-07-10] MEDS: 0.9% Saline Lock 10 ML Syringe IV (17:09)
[2019-07-11] VITALS (9 sets, daily range): BP systolic 131–139; BP diastolic 90–101; PULSE 90–134; RESP 16–20; TEMP 36.8–37.1; O2SAT 90–97
[2019-07-11] MEDS: Cefazolin 2 GM in 0.9% Normal Saline 100 ML IV ×2 (00:20→05:11)
[2019-07-11] MEDS: Acetaminophen 325 MG Tablet 650 MG PO ×3 (00:23→11:06)
[2019-07-11] MEDS: 0.9% Saline Lock 10 ML Syringe IV (05:11)
[2019-07-11 07:16] LABS: Absolute Lymphocyte Count 0.72 X10^3/uL (0.83-4.51); Absolute Neutrophil Count 18.6 X10^3/uL (2.0-7.7); Basophil# 0.07 X10^3/uL; Basophil% 0.3 % (0-1); Eosinophil# 0.02 X10^3/uL; Eosinophils% 0.1 % (0-5); Hemoglobin 13.6 g/dL (13.0-16.5); Lymphocyte # 0.72 X10^3/ul (4.0); Lymphocyte % 3.5 % (19-41); Mean Corp Hgb Conc 35.8 g/dL (32-36); Mean Corpuscular Hgb 35.6 pg (27.0-32.0); Mean Corpuscular Volume 99.5 fL (80-94); Mean Platelet Vol. 10.5 fl (6.2-12.0); Monocyte% 4.3 % (0-10); NRBC Flagged by Analyzer 0 % (0-5); Neutrophil # 18.64 X10^3/uL (2.7-7.7); Neutrophil % 89.5 % (47-70); POSITIVE MORPHOLOGY YES; Platelet Count 188 K/mm3 (150-450); RBC Distribution Width CV 15.9 % (11.6-14.6); RBC Distribution Width SD 55.4 fl (35.1-43.9); Red Blood Count 3.82 M/mm3 (4.6-6.2); White Blood Count 20.8 K/mm3 (4.4-11.0)
[2019-07-11 07:25] LABS: Differential Indicated SCAN CRITERIA MET
[2019-07-11 07:48] LABS: Differential Comment SCANNED; Platelet Estimate ADEQUATE (ADEQ); Red Cell Morphology NORM C+C NORMAL (NORM C&C)
[2019-07-11] MEDS: Allopurinol 300 MG Tablet PO (07:57)
[2019-07-11] MEDS: Magnesium Oxide 400 MG Tablet PO (07:57)
[2019-07-11] MEDS: Famotidine 20 MG Tablet PO (09:47)
[2019-07-11] MEDS: Metoprolol Tartrate 25 MG Tablet PO (09:47)
--- NOTE | 2019-07-11 10:04 | PN.ID_ITS ---
Patient Problems: Active and Suspected Problems Severe sepsis (Acute) Cellulitis (Acute) Venous stasis ulcers (Acute) Hyperglycemia (Acute) Hypoxia (Acute) Lactic acidosis (Acute) Subjective: Feeling good, no fever, no pain in leg, no dyspnea - Physical Exam Vitals/I&O's: Vital Signs Temp Pulse Resp BP Pulse Ox 98.3 F 90 16 139/101 H 95 07/11/19 09:43 07/11/19 09:47 07/11/19 09:43 07/11/19 09:43 07/11/19 09:43 Oxygen Flow Rate (L/min) 2 Oxygen Delivery Method Room Air Weight: 163.1 kg Body Mass Index (BMI) 51.5 Intake and Output for Last 24 Hours 07/09/19 07/10/19 07/11/19 23:59 23:59 23:59 Intake Total 3983.75 / 4067.50 3551.25 / 3551.25 880 / 880 Output Total 275 / 275 800 / 800 100 / 100 Balance 3708.75 / 3792.50 2751.25 / 2751.25 780 / 780 General: Alert, Cooperative, No apparent distress Lungs: Clear to auscultation, Normal air movement Cardiovascular: Regular rate, Regular Rhythm Abdomen: Soft, Non Tender, Non-Distended Extremities: Edema Skin: - - BLE wrapped Microbiology Past 72 Hours 07/10/19 13:38 Mucosa - Nasopharyngeal Respiratory Panel (PCR) - Final 07/09/19 18:50 Wound - Leg, Left Gram Stain - Final 07/09/19 18:50 Wound - Leg, Left Wound Culture - Final Staphylococcus epidermidis 07/09/19 15:49 Urine, Clean Catch Urine Culture - Final GPC Poss Enterococcus sp 07/09/19 16:00 Mucosa - Nose Influenza Types A,B Direct FA (ANDERS) - Final Laboratory Results 07/11/19 06:20: WBC 20.8 H, RBC 3.82 L, Hgb 13.6, Hct 38.0 L, MCV 99.5 H, MCH 35.6 H, MCHC 35.8 D, RDW Std Deviation 55.4 H, RDW Coeff of Kalyan 15.9 H, Plt Count 188, MPV 10.5, Immature Gran % (Auto) 2.300 H, Neut % (Auto) 89.5 H, Lymph % (Auto) 3.5 L, Barnes % (Auto) 4.3, Eos % (Auto) 0.1, Baso % (Auto) 0.3, Absolute Neuts (auto) 18.6 H, Absolute Lymphs (auto) 0.72 L, Nucleated RBC % 0, Differential Comment SCANNED, Platelet Estimate ADEQUATE, RBC Morphology NORM C+C Current Medications Acetaminophen (Tylenol) 650 mg PO Q6 ON LICENSE OF [facility] Last Admin: 07/11/19 05:17 Dose: 650 mg Documented by: Al Hydroxide/Mg Hydroxide (Mylanta Ii) 30 ml PO Q6H PRN PRN PRN Reason: Gastric Burning Albuterol Sulfate (Ventolin Aerosols) 2.5 mg INHALATION Q2H PRN PRN PRN Reason: SOB/Wheezing Allopurinol (Zyloprim) 300 mg PO DAILY@0800 ON LICENSE OF [facility] Last Admin: 07/11/19 07:57 Dose: 300 mg Documented by: Famotidine (Pepcid) 20 mg PO BID ON LICENSE OF [facility] Last Admin: 07/11/19 09:47 Dose: 20 mg Documented by: Guaifenesin (Robitussin) 10 ml PO Q4H PRN PRN PRN Reason: COUGH Sodium Chloride () 250 mls @ 15 mls/hr IV .[id number] PRN PRN Reason: Saline Flush Sodium Chloride () 250 mls @ 15 mls/hr IV .[id number] PRN PRN Reason: Additional IVPB Infusion Cefazolin Sodium 2 gm/ Sodium (Chloride) 110 mls @ 150 mls/hr IV Q8 ON LICENSE OF [facility] Last Infusion: 07/11/19 06:00 Dose: Infused Documented by: Vancomycin IV Pharmacy to Dose (1 ea/ Sodium Chloride) 500 mls @ 250 mls/hr IV PRN PRN; Protocol PRN Reason: Rx to Dose Vancomycin HCl 2,000 mg/ (Sodium Chloride) 540 mls @ 250 mls/hr IV Q12H ON LICENSE OF [facility] Last Infusion: 07/11/19 07:27 Dose: Infused Documented by: Magnesium Hydroxide (Milk Of Magnesia) 30 ml PO DAILY PRN PRN PRN Reason: Constipation Magnesium Oxide (Mag-Ox 400) 400 mg PO DAILYCM ON LICENSE OF [facility] Last Admin: 07/11/19 07:57 Dose: 400 mg Documented by: Metoprolol Tartrate (Lopressor (Beta Muriel)) 2.5 mg IV Q6H PRN PRN PRN Reason: sustained HR >115 Metoprolol Tartrate (Lopressor (Beta Muriel)) 25 mg PO BID ON LICENSE OF [facility] Last Admin: 07/11/19 09:47 Dose: 25 mg Documented by: Ondansetron HCl (Zofran) 4 mg IV Q8H PRN PRN PRN Reason: NAUSEA/VOMITING Oxycodone HCl (Oxyir) 5 mg PO Q4H PRN PRN PRN Reason: Pain Score 4-5/10 Potassium Chloride (K-Dur) 20 meq PO DAILY ON LICENSE OF [facility] Last Admin: 07/11/19 09:47 Dose: 20 meq Documented by: Prochlorperazine Edisylate (Compazine Iv) 5 mg IV Q4H PRN PRN PRN Reason: Breakthrough Nausea/Vomiting Senna/Docusate Sodium (Senokot-S, Sravani-Colace) 2 tablet PO BID PRN PRN PRN Reason: Constipation Sodium Chloride () 10 - 40 ml IV UD PRN PRN Reason: SALINE FLUSH Last Admin: 07/11/19 05:11 Dose: 10 ml Documented by: Throat Lozenges (Cepacol Sore Throat Lozenge) 1 lozenge MUCOUS MEM Q2H PRN PRN PRN Reason: SORE THROAT Warfarin Sodium (Coumadin (Pbkc)) 5 mg PO SuTuThSa@1700 ON LICENSE OF [facility] Last Admin: 07/09/19 21:41 Dose: 5 mg Documented by: Warfarin Sodium (Coumadin (Pbkc)) 7.5 mg PO MoWeFr@1700 ON LICENSE OF [facility] Last Admin: 07/10/19 17:09 Dose: 7.5 mg Documented by: Medical Necessity - Tobacco Use Smoking Status: Current some day smoker Tobacco Use: Cigars, - Route of nutrition/ use of supplements: [] Nutritional Intake: [] IV Site: [] Parrish Catheter: [] - Assessment/Plan Antibiotics: [] Assessment/Plan: [] Active and Suspected Problems Severe sepsis (Acute) Cellulitis (Acute) Venous stasis ulcers (Acute) Hyperglycemia (Acute) Hypoxia (Acute) Lactic acidosis (Acute) severe sepsis due to L hermosillo cellulitis - viral pcr neg. Wound cx with MRSE. On vanc/cefazolin, feeling well. Wbc elevated but improved. Ok for d/c home on one week of po doxy 100mg bid and keflex 500mg tid. Ucx with small growth of GNR, likely contaminant. Recommend repeat cbc later this week. Will follow
[2019-07-11 10:36] LABS: Prothrombin Time Fingerstick 23.4 SEC (11.9-14.4)
--- NOTE | 2019-07-11 10:41 | PN_ITS ---
Subjective: Patient transferred out of the intensive care unit yesterday. Patient did use AVAPS overnight and begrudgingly stated that he feels it may have helped. Patient denies any respiratory complaints at this time. Patient states he feels overall unchanged from a leg standpoint. General: Alert, Oriented x3, Cooperative, No apparent distress, - - No conversational dyspnea. HEENT: Atraumatic, PERRLA, EOMI, Normocephalic, - - No scleral icterus or injection noted Oral: Moist Mucosa, No Gingival or Mucosal Lesions/ Ulcerations, - - Crowded posterior pharynx Neck: Supple, No JVD, No Nodes, Trachea Midline Lungs: Clear to auscultation, Normal air movement, No rhonchi, No wheeze, No rales, - - Symmetric expansion. No dullness to percussion. Cardiovascular: Normal S1, Normal S2, No murmurs, Irregular Rate, No rub noted, No Gallop Abdomen: Bowel Sounds Present, Soft, Non Tender, Non-Distended, Obese Extremities: No clubbing, No cyanosis, Edema Skin: - - No change compared to previous Musculoskeletal: Tenderness - Palpation lower extremity Lymphatic: No Cervical, Supraclavicular, or Inguinal Adenopathy Neurological: Cranial nerves II-XII grossly intact, Neuro grossly intact, - - No change compared to previous Psych/Mental Status: Alert and oriented to time, place, person, mood and affect Vital Signs Temp Pulse Resp BP Pulse Ox 36.8 C 90 16 139/101 H 95 07/11/19 09:43 07/11/19 09:47 07/11/19 09:43 07/11/19 09:43 07/11/19 09:43 Oxygen Flow Rate (L/min) 2 Oxygen Delivery Method Room Air Weight: 163.1 kg Body Mass Index (BMI) 51.5 Intake and Output for Last 24 Hours 07/09/19 07/10/19 07/11/19 23:59 23:59 23:59 Intake Total 3983.75 / 4067.50 3551.25 / 3551.25 880 / 880 Output Total 275 / 275 800 / 800 100 / 100 Balance 3708.75 / 3792.50 2751.25 / 2751.25 780 / 780 Labs (Last 48 Hours) 07/09/19 07/09/19 07/09/19 15:35 15:35 15:35 WBC 14.1 H RBC 4.80 Hgb 15.3 Hct 45.8 MCV 95.4 H MCH 31.9 MCHC 33.4 RDW Std Deviation 50.9 H RDW Coeff of Kalyan 14.6 Plt Count 238 MPV 9.6 Immature Gran % (Auto) 0.800 Neut % (Auto) 92.6 H Lymph % (Auto) 4.4 L [place] % (Auto) 2.1 Eos % (Auto) 0.0 Baso % (Auto) 0.1 Absolute Neuts (auto) 13.0 H Absolute Lymphs (auto) 0.62 L Nucleated RBC % 0 Differential Comment Platelet Estimate ADEQUATE RBC Morphology N CHROM Anisocytosis RARE Macrocytosis RARE POC PT PT 25.7 H INR 2.4 APTT 31.9 Sodium 136 Potassium 3.9 Chloride 101 Carbon Dioxide 28.0 Anion Gap 7 BUN 23 H Creatinine 1.19 Estim Creat Clear Calc 61.34 Est GFR (MDRD) Af Amer 78 Est GFR (MDRD) Non-Af 65 BUN/Creatinine Ratio 19.3 Glucose 142 H Hemoglobin A1c Lactic Acid Uric Acid Calcium 9.2 Phosphorus Magnesium Total Bilirubin 0.70 AST 33 ALT 32 Alkaline Phosphatase 69 Total Protein 7.8 Albumin 3.5 Globulin 4.3 H Albumin/Globulin Ratio 0.8 L Triglycerides Cholesterol LDL Cholesterol VLDL Cholesterol HDL Cholesterol Urine Color Urine Clarity Urine pH Ur Specific [place] Urine Protein Urine Glucose (UA) Urine Ketones Urine Occult Blood Urine Nitrite Urine Bilirubin Urine Urobilinogen Ur Leukocyte Esterase Urine RBC Urine WBC Ur Squamous Epith Cells Urine Bacteria Urine Mucus S.aureus Protein A PCR MRSA (PCR) 07/09/19 07/09/19 07/09/19 15:35 15:49 15:55 WBC RBC Hgb Hct MCV MCH MCHC RDW Std Deviation RDW Coeff of Kalyan Plt Count MPV Immature Gran % (Auto) Neut % (Auto) Lymph % (Auto) [place] % (Auto) Eos % (Auto) Baso % (Auto) Absolute Neuts (auto) Absolute Lymphs (auto) Nucleated RBC % Differential Comment Platelet Estimate RBC Morphology Anisocytosis Macrocytosis POC PT PT INR APTT Sodium Potassium Chloride Carbon Dioxide Anion Gap BUN Creatinine Estim Creat Clear Calc Est GFR (MDRD) Af Amer Est GFR (MDRD) Non-Af BUN/Creatinine Ratio Glucose Hemoglobin A1c 6.6 H Lactic Acid 3.2 H* Uric Acid Calcium Phosphorus Magnesium Total Bilirubin AST ALT Alkaline Phosphatase Total Protein Albumin Globulin Albumin/Globulin Ratio Triglycerides Cholesterol LDL Cholesterol VLDL Cholesterol HDL Cholesterol Urine Color Yellow Urine Clarity Clear Urine pH 5.0 Ur Specific [place] 1.015 Urine Protein Negative Urine Glucose (UA) Normal Urine Ketones Negative Urine Occult Blood Negative Urine Nitrite Negative Urine Bilirubin Negative Urine Urobilinogen Normal Ur Leukocyte Esterase 25 H Urine RBC 0 SEEN Urine WBC 0-5 SEEN Ur Squamous Epith Cells 0 SEEN Urine Bacteria 0 SEEN Urine Mucus 0 SEEN S.aureus Protein A PCR MRSA (PCR) 07/09/19 07/09/19 07/09/19 15:55 18:50 18:53 WBC RBC Hgb Hct MCV MCH MCHC RDW Std Deviation RDW Coeff of Kalyan Plt Count MPV Immature Gran % (Auto) Neut % (Auto) Lymph % (Auto) [place] % (Auto) Eos % (Auto) Baso % (Auto) Absolute Neuts (auto) Absolute Lymphs (auto) Nucleated RBC % Differential Comment Platelet Estimate RBC Morphology Anisocytosis Macrocytosis POC PT PT Cancelled INR Cancelled APTT Sodium Potassium Chloride Carbon Dioxide Anion Gap BUN Creatinine Estim Creat Clear Calc Est GFR (MDRD) Af Amer Est GFR (MDRD) Non-Af BUN/Creatinine Ratio Glucose Hemoglobin A1c Lactic Acid Uric Acid 5.6 Calcium Phosphorus Magnesium 1.4 L Total Bilirubin AST ALT Alkaline Phosphatase Total Protein Albumin Globulin Albumin/Globulin Ratio Triglycerides Cholesterol LDL Cholesterol VLDL Cholesterol HDL Cholesterol Urine Color Urine Clarity Urine pH Ur Specific [place] Urine Protein Urine Glucose (UA) Urine Ketones Urine Occult Blood Urine Nitrite Urine Bilirubin Urine Urobilinogen Ur Leukocyte Esterase Urine RBC Urine WBC Ur Squamous Epith Cells Urine Bacteria Urine Mucus S.aureus Protein A PCR NEGATIVE MRSA (PCR) Negative 07/09/19 07/09/19 07/10/19 20:00 23:45 04:45 WBC 22.8 H RBC 4.18 L Hgb 13.6 Hct 40.2 MCV 96.2 H MCH 32.5 H MCHC 33.8 RDW Std Deviation 53.2 H RDW Coeff of Kalyan 15.1 H Plt Count 201 MPV 9.5 Immature Gran % (Auto) 2.700 H Neut % (Auto) 89.5 H Lymph % (Auto) 3.1 L [place] % (Auto) 4.0 Eos % (Auto) 0.5 Baso % (Auto) 0.2 Absolute Neuts (auto) 20.4 H Absolute Lymphs (auto) 0.71 L Nucleated RBC % 0 Differential Comment Platelet Estimate RBC Morphology Anisocytosis Macrocytosis POC PT PT INR APTT Sodium Potassium Chloride Carbon Dioxide Anion Gap BUN Creatinine Estim Creat Clear Calc Est GFR (MDRD) Af Amer Est GFR (MDRD) Non-Af BUN/Creatinine Ratio Glucose Hemoglobin A1c Lactic Acid 2.8 H* 2.1 H* Uric Acid Calcium Phosphorus Magnesium Total Bilirubin AST ALT Alkaline Phosphatase Total Protein Albumin Globulin Albumin/Globulin Ratio Triglycerides Cholesterol LDL Cholesterol VLDL Cholesterol HDL Cholesterol Urine Color Urine Clarity Urine pH Ur Specific [place] Urine Protein Urine Glucose (UA) Urine Ketones Urine Occult Blood Urine Nitrite Urine Bilirubin Urine Urobilinogen Ur Leukocyte Esterase Urine RBC Urine WBC Ur Squamous Epith Cells Urine Bacteria Urine Mucus S.aureus Protein A PCR MRSA (PCR) 07/10/19 07/10/19 07/11/19 04:45 04:45 06:16 WBC RBC Hgb Hct MCV MCH MCHC RDW Std Deviation RDW Coeff of Kalyan Plt Count MPV Immature Gran % (Auto) Neut % (Auto) Lymph % (Auto) [place] % (Auto) Eos % (Auto) Baso % (Auto) Absolute Neuts (auto) Absolute Lymphs (auto) Nucleated RBC % Differential Comment Platelet Estimate RBC Morphology Anisocytosis Macrocytosis POC PT 23.4 H PT 24.4 H INR 2.2 2.00 APTT Sodium 136 Potassium 4.1 Chloride 102 Carbon Dioxide 29.0 Anion Gap 5 BUN 18 Creatinine 0.89 Estim Creat Clear Calc 82.02 Est GFR (MDRD) Af Amer 109 Est GFR (MDRD) Non-Af 90 BUN/Creatinine Ratio 20.1 H Glucose 112 H Hemoglobin A1c Lactic Acid Uric Acid Calcium 8.0 L Phosphorus 3.1 Magnesium 2.4 Total Bilirubin AST ALT Alkaline Phosphatase Total Protein Albumin Globulin Albumin/Globulin Ratio Triglycerides 83 Cholesterol 111 LDL Cholesterol 40 VLDL Cholesterol 17 HDL Cholesterol 54 Urine Color Urine Clarity Urine pH Ur Specific [place] Urine Protein Urine Glucose (UA) Urine Ketones Urine Occult Blood Urine Nitrite Urine Bilirubin Urine Urobilinogen Ur Leukocyte Esterase Urine RBC Urine WBC Ur Squamous Epith Cells Urine Bacteria Urine Mucus S.aureus Protein A PCR MRSA (PCR) 07/11/19 06:20 WBC 20.8 H RBC 3.82 L Hgb 13.6 Hct 38.0 L MCV 99.5 H MCH 35.6 H MCHC 35.8 D RDW Std Deviation 55.4 H RDW Coeff of Kalyan 15.9 H Plt Count 188 MPV 10.5 Immature Gran % (Auto) 2.300 H Neut % (Auto) 89.5 H Lymph % (Auto) 3.5 L [place] % (Auto) 4.3 Eos % (Auto) 0.1 Baso % (Auto) 0.3 Absolute Neuts (auto) 18.6 H Absolute Lymphs (auto) 0.72 L Nucleated RBC % 0 Differential Comment SCANNED Platelet Estimate ADEQUATE RBC Morphology NORM C+C Anisocytosis Macrocytosis POC PT PT INR APTT Sodium Potassium Chloride Carbon Dioxide Anion Gap BUN Creatinine Estim Creat Clear Calc Est GFR (MDRD) Af Amer Est GFR (MDRD) Non-Af BUN/Creatinine Ratio Glucose Hemoglobin A1c Lactic Acid Uric Acid Calcium Phosphorus Magnesium Total Bilirubin AST ALT Alkaline Phosphatase Total Protein Albumin Globulin Albumin/Globulin Ratio Triglycerides Cholesterol LDL Cholesterol VLDL Cholesterol HDL Cholesterol Urine Color Urine Clarity Urine pH Ur Specific [place] Urine Protein Urine Glucose (UA) Urine Ketones Urine Occult Blood Urine Nitrite Urine Bilirubin Urine Urobilinogen Ur Leukocyte Esterase Urine RBC Urine WBC Ur Squamous Epith Cells Urine Bacteria Urine Mucus S.aureus Protein A PCR MRSA (PCR) Microbiology 07/10/19 13:38 Mucosa - Nasopharyngeal Respiratory Panel (PCR) - Final 07/09/19 18:50 Wound - Leg, Left Gram Stain - Final 07/09/19 18:50 Wound - Leg, Left Wound Culture - Final Staphylococcus epidermidis 07/09/19 15:49 Urine, Clean Catch Urine Culture - Final GPC Poss Enterococcus sp 07/09/19 16:00 Mucosa - Nose Influenza Types A,B Direct FA (ANDERS) - Final Medical Necessity - Tobacco Use Smoking Status: Current some day smoker Tobacco Use: Cigars, - Assessment/Plan All Active Problems Severe sepsis (Acute) Cellulitis (Acute) Venous stasis ulcers (Acute) Hyperglycemia (Acute) Hypoxia (Acute) Lactic acidosis (Acute) RECOMMENDATIONS: 1. Antibiotics per infectious disease 2. Continue AVAPS empirically for sleep apnea 3. Wound nurse to evaluate lower extremities 4. Likely okay to reinitiate SUNG inhibitor 5. Hemodynamically stable on room air. Will sign off from a critical care perspective 6. Patient can follow-up as an outpatient for PFT and PSG if agreeable IMPRESSIONS: 1. Severe sepsis secondary to probable infected venous stasis ulcer Patient's MRSA swab was negative, so vancomycin can be discontinued. Biotics per infectious disease. Await results of cultures. Initial tachypnea may have been secondary to compensation for lactic acidosis in the setting of possible obstructive lung disease given smoking history. Evaluation of COPD would have to be completed as an outpatient. 2. Chronic venous insufficiency with left lower extremity venous stasis ulcer Wound looks relatively benign clinically. Cultures are currently pending. Compression and elevation has been ordered. Wound nurse to evaluate. Do not believe plastics needs to be involved at this time. 3. Hypoxia/untreated sleep apnea/possible obstructive lung disease Patient with significant hypoxia overnight, but this was related to apneic events clinically. Patient's previous CPAP of 12 cm of water is likely not sufficient given an increase in BMI of over 10 kg/m?. Patient will be placed on AVAPS while in the hospital. Patient will need a sleep study as an outpatient as BiPAP will likely be necessary. Did stress to the patient the role of weight loss and the overall disease plan of care. Patient would also benefit from pulmonary function testing as an outpatient. Could consider as needed bronchodilators, but steroids are likely not indicated. 4. Hyperglycemia/morbid obesity/chronic A. fib/chronic anticoagulation/gout/hypertension Complicates care, management, recovery and prognosis. Hemoglobin A1c is currently pending. Will reinitiate patient's beta-ernesto to avoid A. fib with RVR. Continue to hold SUNG inhibitor given marginal blood pressures. Possible addition of sliding scale insulin if glucose starts to become elevated. Patient would benefit from diabetic teaching for probable prediabetes. Code Visit Inpatient E&M: 05258 Subs Hosp L2
--- NOTE | 2019-07-11 12:43 | PCM.DC ---
- Discharge Diagnoses Current Active Problems: Current Active and Chronic Problems Severe sepsis (Acute) Cellulitis (Acute) Venous stasis ulcers (Acute) Super obesity (Chronic) Obstructive sleep apnea (Chronic) he does not wear PAP Hyperuricemia (Chronic) Gout (Chronic) Hypertension (Chronic) Hyperglycemia (Acute) Venous insufficiency (Chronic) Hypoxia (Acute) Atrial fibrillation (Chronic) Lactic acidosis (Acute) History of DVT (deep vein thrombosis) (Chronic) Chronic anticoagulation (Chronic) On warfarin You will use the following diet at home:: No restrictions Your food should be the consistency of: Regular Your liquids should be the consistency of: Regular/Thin Discharge Activity: Return to Normal Activity Weight Bearing Status: Full weight bearing Allergies/Adverse Reactions: Allergies Penicillins Allergy (Verified 07/09/19 15:21) Nausea/Vom/Diarrhea adhesive Adverse Reaction (Verified 07/09/19 15:22) Rash Medications to take at Discharge Allopurinol 300 mg PO DAILY 07/09/19 Lisinopril 40 mg PO DAILY 07/09/19 Metoprolol Tartrate 25 mg PO BID 07/09/19 Potassium Chloride 20 meq PO DAILY 07/09/19 Doxycycline 100 mg PO BID #15 cap 07/11/19 Furosemide [Lasix] 40 mg PO DAILY #30 tab 07/11/19 Metoprolol Tartrate [Lopressor (beta ernesto)] 25 mg PO BID tablet 07/11/19 Warfarin [Coumadin] 5 mg PO SuTuThSa@1700 tablet 07/11/19 Warfarin [Coumadin] 7.5 mg PO MoWeFr@1700 tablet 07/11/19 The following prescriptions were given: Doxycycline 100 mg PO BID #15 cap Transmission Status: Pending to [id number] Furosemide [Lasix] 40 mg PO DAILY #30 tab Transmission Status: Pending to [id number] Primary Care Physician: Jeff Gore III, MD [Primary Care Provider] - Please follow up with your Primary Care Physician in: in one week Test Results: Test results from this visit will be discussed in further detail at your follow-up appointment, if applicable. Please Follow Up With: Vivek Wynne MD When: in two weeks-call for appointment
--- NOTE | 2019-07-13 16:03 | DS.PCM_ITS ---
Discharge Date and Diagnosis Date of Admission: 07/09/19 Date of Discharge: 07/11/19 - Primary Discharge Diagnosis #1 sepsis-secondary to cellulitis from staph epidermidis #2 hypoxia-probably secondary to underlying chronic obstructive pulmonary disease from untreated sleep apnea #3 chronic atrial fibrillation #4 chronic anticoagulation with Coumadin #5 class III obesity #6 essential hypertension #7 venous stasis of the lower legs with cellulitis of the left lower leg - Secondary Discharge Diagnosis Chronic Problems Super obesity (Chronic) Obstructive sleep apnea (Chronic) he does not wear PAP Hyperuricemia (Chronic) Gout (Chronic) Hypertension (Chronic) Venous insufficiency (Chronic) Atrial fibrillation (Chronic) History of DVT (deep vein thrombosis) (Chronic) Chronic anticoagulation (Chronic) On warfarin Hospital Course and Treatment Consultations 07/09/19 18:39 Consult: Onc/Wound/exterminator helper termite Routine Comment: Operations: None Procedures: None Summary of Care Provided: The patient is a 69 year old M seen in the emergency room with chief complaint of fever, malaise, and some shortness of breath that has been getting worse over 12 hours. He was brought in by squad at the direction of his due to the symptoms. Patient was noted to be febrile and tachycardic, he required supplemental oxygen, he was given IV fluids and a sepsis work-up was pursued. Lab work was remarkable for a white blood cell count of 14, lactic acid was elevated at 3.2, remainder of his laboratory work was unremarkable. Chest x-ray showed no acute findings, on examination of his left lower leg there was noted to be 2 abrasions and there is some redness to his left lower leg noted. Patient was started on IV antibiotics and he was admitted to ICU for severe sepsis, he was seen in consultation by critical care and infectious diseases. Patient was moved to PCU following day in stable condition. Infectious diseases did not recommend outpatient IV antibiotic therapy. On 07/11/2019, patient was seen and examined: On examination he appeared in good health and spirits. Vital signs as documented. Skin warm and dry, lower legs had evidence of stasis dermatitis changes, left lower leg was reddened.. Neck without JVD. Lungs clear. Heart exam notable for regular rhythm, normal sounds and absence of murmurs, rub s or gallops. Abdomen unremarkable and without evidence of organomegaly, masses, or abdominal aortic enlargement. Extremities nonedematous. Neuro: Cranial nerves II through XII are grossly intact, no focal motor deficits were noted, sensation to light touch and pinprick intact. Psych: Patient is alert and oriented x3, he does not appear anxious or depressed 07/11/2019, patient was seen and examined felt to be in stable condition for discharge home - Physical Exam Vitals/I&O's: Vital Signs Temp Pulse Resp BP Pulse Ox 98.3 F 134 H 16 139/101 H 95 07/11/19 09:43 07/11/19 10:13 07/11/19 09:43 07/11/19 09:43 07/11/19 13:33 Oxygen Flow Rate (L/min) 2 Oxygen Delivery Method Room Air Weight: 163.1 kg Body Mass Index (BMI) 51.5 Intake and Output for Last 24 Hours 07/11/19 07/12/19 07/13/19 23:59 23:59 23:59 Intake Total 1100 / 1100 Output Total 100 / 100 Balance 1000 / 1000 Microbiology Past 72 Hours 07/09/19 15:55 Blood Culture (Wb) - Anticubital Left Blood Culture - Preliminary No growth in 48 hours. 07/09/19 15:35 Blood Culture (Wb) - Left Hand Blood Culture - Preliminary No growth in 48 hours. 07/10/19 13:38 Mucosa - Nasopharyngeal Respiratory Panel (PCR) - Final 07/09/19 18:50 Wound - Leg, Left Gram Stain - Final 07/09/19 18:50 Wound - Leg, Left Wound Culture - Final Staphylococcus epidermidis 07/09/19 15:49 Urine, Clean Catch Urine Culture - Final GPC Poss Enterococcus sp Discharge Activity: Return to Normal Activity Weight Bearing Status: Full weight bearing Home Medications: Medications to take at Discharge Allopurinol 300 mg PO DAILY 07/09/19 Lisinopril 40 mg PO DAILY 07/09/19 Metoprolol Tartrate 25 mg PO BID 07/09/19 Potassium Chloride 20 meq PO DAILY 07/09/19 Doxycycline 100 mg PO BID #15 cap 07/11/19 Furosemide [Lasix] 40 mg PO DAILY #30 tab 07/11/19 Metoprolol Tartrate [Lopressor (beta ernesto)] 25 mg PO BID tab 07/11/19 Warfarin [Coumadin] 5 mg PO SuTuThSa@1700 tab 07/11/19 Warfarin [Coumadin] 7.5 mg PO MoWeFr@1700 tab 07/11/19 Following Prescrptions Were Given to Patient: Doxycycline 100 mg PO BID #15 cap Transmission Status: Received by [id number] Furosemide [Lasix] 40 mg PO DAILY #30 tab Transmission Status: Received by [id number] Primary Care Physician: Jeff Gore III, MD [Primary Care Provider] - Please follow up with your Primary Care Physician in: in one week Please Follow Up With: Vivek Wynne MD When: in two weeks-call for appointment Disposition: Home Minutes spent on discharge:: 32 Patient Condition:: Stable Medical Necessity - Tobacco Use Smoking Status: Current some day smoker Tobacco Use: Cigars, - Meaningful Use Info Meaningful Use Diagnoses (Choose all that apply): None applicable Inpatient E&M: [id number] [facility]
== END 2019-07-11 14:21 | disposition home or self-care (01) | DRG 872 ==
LOC: ED 17:16 → ICU 20:04 → PCU 07-10 14:54
PROVIDERS: Internal Medicine Critical Care Medicine; Admitting Provider Internal Medicine; Emergency Provider Physician Assistant Medical; PCP Family Medicine; Visit Provider Internal Medicine
DX: A41.9 Sepsis, unspecified organism (principal); I48.20 Chronic atrial fibrillation, unspecified; Z68.43 Body mass index [BMI] 50.0-59.9, adult; L03.116 Cellulitis of left lower limb; R65.20 Severe sepsis without septic shock; Z23 Encounter for immunization; E66.01 Morbid (severe) obesity due to excess calories; I87.2 Venous insufficiency (chronic) (peripheral); F17.290 Nicotine dependence, other tobacco product, uncomplicated; I10 Essential (primary) hypertension; R09.02 Hypoxemia; J44.9 Chronic obstructive pulmonary disease, unspecified; B95.7 Other staphylococcus as the cause of diseases classified elsewhere; Z79.01 Long term (current) use of anticoagulants; Z86.718 Personal history of other venous thrombosis and embolism; G47.33 Obstructive sleep apnea (adult) (pediatric); M10.9 Gout, unspecified
CPT/HCPCS: 36416; 71045; 80048; 80053; 80061; 81001; 83036; 83605; 83735; 84100; 84550; 85025; 85610; 85730; 87040; 87070; 87086; 87088; 87186; 87205; 87633; 87640; 87804; 93005; 94002; 94003; 94762; 97162; 97165; 97530; 97802; 99251; 99285; J7030; J7040; 90686; A4216; G0463; J2405